=== PATIENT | female | born 1955 | race Caucasian/White ===

== ENCOUNTER 2024-12-27 12:25 | Inpatient (IN) | payer OTHER ==
--- NOTE | 2024-12-27 12:59 | RAD REPORT ---
Procedure: Chest Pa And Lat (2 Views) HISTORY: Cough COMPARISON: none FINDINGS: The lungs appear clear of acute infiltrate. No significant pleural effusion noted. The heart is normal size. IMPRESSION: No acute abnormality is displayed.
[2024-12-27] MEDS ORDERED: NA CHLORIDE 0.9% 1,000 ML ONE ×2 (14:08→23:03)
[2024-12-27 14:14] LABS: Influenza A Ag Negative; Influenza B Ag Negative; SARS-CoV-2 Antigen Rapid Res Negative (Negative)
[2024-12-27 14:29] LABS: Absolute Lymphocytes (CBC) 0.7 K/uL (0.7-4.9); Absolute Monocytes 2.7 K/uL (0.1-1.3); Absolute Neutrophil 15.2 K/uL (1.8-8.0); Basophils % 0.1 % (0-1.3); Hematocrit 42.9 % (36.0-45.0); Hemoglobin 14.8 g/dL (12.0-15.0); Lymphocytes % 3.9 % (15.3-44.8); MCHC 34.6 g/dL (32.0-36.0); MCV 92.5 fL (80-100); Monocytes % 14.3 % (3.3-12.3); Neutrophils % 81.7 % (41.7-73.7); Nucleated Red Blood Cells % 0.1 % (0-0); Platelets 444 thou/uL (152-406); RBC Red Blood Cell Count 4.64 M/uL (3.86-4.86); Red Cell Distribution Width 14.3 % (12.1-15.2)
[2024-12-27 14:37] LABS: Albumin 3.5 g/dL (3.4-5.0); Albumin/Globulin Ratio 0.6 (1.1-1.8); Anion Gap 14.1 mEq/L (5.0-15.0); Bilirubin Total 0.7 mg/dL (0.2-1.0); Globulin 5.8 g/dL (2.3-3.5); Protein, Total 9.3 g/dL (6.4-8.2)
[2024-12-27 14:41] LABS: Potassium 2.1 mEq/L (3.5-5.1)
[2024-12-27 15:19] LABS: Blood Morphology Comment NOT SEEN (NOT SEEN); Platelet Estimate INCR; White Blood Cell Scan OK (OK)
--- NOTE | 2024-12-27 16:06 | RAD REPORT ---
EXAM: CT CHEST, ABDOMEN AND PELVIS WITHOUT CONTRAST CLINICAL INDICATION: Cough and abdominal pain TECHNIQUE: CT chest, abdomen and pelvis was performed, without IV contrast, as per department protoco l. Axial, sagittal and coronal reconstructions were obtained. One or more of the following dose reduction techniques were used: Automated exposure control, adjustment of the mA and/or kV according to the patient size, and/or iterative reconstruction. Unless otherwise specified, incidental findings do not require dedicated imaging follow-up. The lack of IV and oral contrast limits evaluation of the mediastinum, osvaldo, vessels, organs and rocio l. COMPARISON: 2023 FINDINGS: Right lower lobe consolidation. Minimal left lower lobe opacities. No mediastinal or hilar lymphadenopathy seen. No pleural effusion. No pericardial effusion. Liver, spleen, pancreas, adrenals kidneys and bladder appear grossly normal There is no evidence of diverticulitis No adnexal mass. Left hip arthroplasty. Small umbilical hernia IMPRESSION: Right lower lobe consolidation consistent with pneumonia. This should be followed until has cleared t o help exclude a postobstructive process/underlying mass
[2024-12-27] MEDS ORDERED: IPRATROPIUM BROM 0.5MG/2.5ML ONE ×2 (16:08→19:19)
[2024-12-27] MEDS ORDERED: POTASSIUM 25 MEQ EFFERV TAB ONE ×2 (16:08→17:39)
[2024-12-27] MEDS ORDERED: FAMOTIDINE 20 MG/2 ML VIAL IV ONE (16:08)
[2024-12-27] MEDS ORDERED: NS KCL 20MEQ 1,000 ML IV ONE (16:08)
[2024-12-27] MEDS ORDERED: LEVALBUTEROL 1.25 MG/3 ML NEB ONE ×2 (16:08→16:47)
[2024-12-27] MEDS ORDERED: KCL 20 MEQ/100 mL IVPB 100 ML IV ONE ×3 (16:09→23:02)
[2024-12-27] MEDS ORDERED: Levofloxacin 750mg IV 750 MG/150 ML BAG IV ONE (16:09)
[2024-12-27 16:19] LABS: PT Prothrombin Time 13.8 SECONDS (10-13.0); Protime INR 1.22
--- NOTE | 2024-12-27 16:31 | EDPHYS ---
Physician Documentation [facility] Name: Eileen Palacio Age: 69 yrs Sex: Female : 1955 Arrival Date: 12/27/2024 Time: 12:25 Bed 23 Private MD: ED Physician Berlin Lagunas HPI: 12/27 16:21 This 69 yrs old Female presents to ER via Wheelchair with complaints of ladan Cough, Sore Throat, Body aches. 16:21 The patient or guardian reports airway noise, cough, difficulty breathing, flu ladan symptoms, arthralgias, low-grade fever, myalgias. Onset: The symptoms/episode began/occurred 5 day(s) ago. Severity of symptoms: At their worst the symptoms were mild, moderate, in the emergency department the symptoms are unchanged. Modifying factors: The symptoms are alleviated by cool environment, the symptoms are aggravated by exertion, talking. Associated signs and symptoms: Pertinent positives: fever, nausea, rhinorrhea, sore throat, vomiting. The patient has experienced similar episodes in the past, a few times. Historical: - Allergies: 13:26 No Known Allergies; iw - PMHx: 13:26 Arthritis; chronic back pain; High Cholesterol; Hypertension; neck stenosis; iw - PSHx: 13:26 Leg - Left; iw - Immunization history:: Adult Immunizations unknown. - Infectious Disease History:: Denies. - Social history:: Smoking status: Patient denies any tobacco usage or history of. ROS: 16:21 Constitutional: Negative for fever, chills, and weight loss, Eyes: Negative for injury, ladan pain, redness, and discharge, ENT: Negative for injury, pain, and discharge, Neck: Negative for injury, pain, and swelling, Cardiovascular: Negative for chest pain, palpitations, and edema, Respiratory: Negative for shortness of breath, cough, wheezing, and pleuritic chest pain, Back: Negative for injury and pain, : Negative for injury, bleeding, discharge, and swelling, MS/Extremity: Negative for injury and deformity, Skin: Negative for injury, rash, and discoloration, Neuro: Negative for headache, weakness, numbness, tingling, and seizure, Psych: Negative for depression, anxiety, suicide ideation, homicidal ideation, and hallucinations, Allergy/Immunology: Negative for hives, rash, and allergies, Endocrine: Negative for neck swelling, polydipsia, polyuria, polyphagia, and marked weight changes, Hematologic/Lymphatic: Negative for swollen nodes, abnormal bleeding, and unusual bruising, 16:21 Respiratory: Positive for cough, shortness of breath, wheezing, expiratory, 16:21 Abdomen/GI: Exam: 16:21 Constitutional: This is a well developed, well nourished patient who is awake, alert, ladan and in no acute distress. Head/Face: Normocephalic, atraumatic. Eyes: Pupils equal round and reactive to light, extra-ocular motions intact. Lids and lashes normal. Conjunctiva and sclera are non-icteric and not injected. Cornea within normal limits. Periorbital areas with no swelling, redness, or edema. ENT: Nares patent. No nasal discharge, no septal abnormalities noted. Tympanic membranes are normal and external auditory canals are clear. Oropharynx with no redness, swelling, or masses, exudates, or evidence of obstruction, uvula midline. Mucous membranes moist. Neck: Trachea midline, no thyromegaly or masses palpated, and no cervical lymphadenopathy. Supple, full range of motion without nuchal rigidity, or vertebral point tenderness. No Meningismus. Chest/axilla: Normal chest wall appearance and motion. Nontender with no deformity. No lesions are appreciated. Abdomen/GI: Soft, non-tender, with normal bowel sounds. No distension or tympany. No guarding or rebound. No evidence of tenderness throughout. Back: No spinal tenderness. No costovertebral tenderness. Full range of motion. Female : Normal external genitalia. Skin: Warm, dry with normal turgor. Normal color with no rashes, no lesions, and no evidence of cellulitis. MS/ Extremity: Pulses equal, no cyanosis. Neurovascular intact. Full, normal range of motion., bilateral aka Neuro: Awake and alert, GCS 15, oriented to person, place, time, and situation. Cranial nerves II-XII grossly intact. Motor strength 5/5 in all extremities. Sensory grossly intact. Cerebellar exam normal. Normal gait. Psych: Awake, alert, with orientation to person, place and time. Behavior, mood, and affect are within normal limits. 16:21 Cardiovascular: Rate: normal, Rhythm: regular, Pulses: Pulses are 4+ in bilateral radial, brachial, femoral, popliteal, posterior tibial and and dorsalis pedis arteries.. Heart sounds: normal, Edema: is not appreciated, JVD: is not appreciated, 16:21 ECG was reviewed by the Attending Physician. 16:21 Respiratory: the patient does not display signs of respiratory distress, Respirations: no acute changes, Breath sounds: bronchial sounds, that are moderate, are scattered, decreased breath sounds, that are mild, are scattered, rhonchi, that are moderate, are scattered, stridor, is not appreciated, + upper airway congestion. wheezing: expiratory is scattered, 16:21 Musculoskeletal/extremity: Extremities: all appear grossly normal, with no appreciated pain with palpation, ROM: no acute changes, intact in all extremities, full active range of motion, full passive range of motion, Sensation intact. Compartment Syndrome exam of affected extremity: is normal. Weight bearing: able to fully bear weight, DVT Exam: No signs of deep vein thrombosis. no pain, no swelling, no tenderness, negative Homans' sign noted on exam, no appreciated bluish discoloration, no erythema, no increased warmth, 16:31 ECG was reviewed by the Attending Physician. [facility] Vital Signs: 13:23 BP 129 / 81; Pulse 91; Resp 19; Temp 98.1; Pulse Ox 87% on R/A; iw 13:27 Weight 95.25 kg; Height 5 ft. 9 in. ; Pain 8/10; iw 15:10 BP 149 / 79; Pulse 86; Resp 18; Pulse Ox 95% on 2 lpm NC; me1 16:00 BP 136 / 63; Pulse 84; Resp 20; Pulse Ox 95% on 2 lpm NC; me1 17:00 BP 121 / 71; Pulse 86; Resp 22; Pulse Ox 97% on 2 lpm NC; me1 18:00 BP 120 / 63; Pulse 89; Resp 21; Pulse Ox 94% on 3 lpm NC; me1 13:27 Body Mass Index 31.01 (95.25 kg, 175.26 cm) 13:27 Pain Scale: Adult iw Luke Coma Score: 16:21 Eye Response: spontaneous(4). Motor Response: obeys commands(6). Verbal Response: ladan oriented(5). Total: 15. MDM: 12:34 Medical Screening Exam initiated [facility] 16:25 Differential Diagnosis: sepsis, Obstructed Airway Bronchitis Influenza Upper ladan Respiratory Infection Sinusitis Pharyngitis Asthma Exacerbation Viral Syndrome Pneumonia Tracheal Injury. Data reviewed: vital signs, nurses notes, EMS record, lab test result(s), EKG, radiologic studies, CT scan, plain films. Consideration of Admission/Observation Patient was admitted/placed on observation. Escalation of care including admission/observation considered. I considered the following discharge prescriptions or medication management in the emergency department Medications were administered in the Emergency Department. See MAR. Independent interpretation of the following test(s) in the Emergency Department EKG: See my EKG interpretation above. Test considered but Not performed: MRI: no mri chest. Historians other than the Patient: Spouse/Significant Other: spouse well in formed. Care significantly affected by the following chronic conditions: Hypertension, oa, chronic back pain, neck stenosis. Counseling: I had a detailed discussion with the patient and/or guardian regarding the historical points, exam findings, and any diagnostic results supporting the discharge/admit diagnosis, lab results, radiology results, the need for further work-up and treatment in the hospital. 12/27 12:36 Order name: COVID-19 Ag + Flu A+B Ag; Complete Time: 15:20 [facility] 12/27 12:36 Order name: Group A Streptococcus Rapid [facility] 12/27 12:36 Order name: CBC with Diff; Complete Time: 15:20 [facility] 12/27 12:36 Order name: Comprehensive Metabolic Panel; Complete Time: 15:20 [facility] 12/27 12:36 Order name: Urinalysis w/ reflexes [facility] 12/27 15:19 Order name: CBC Smear Scan; Complete Time: 15:20 [facility] 12/27 15:22 Order name: Basic Metabolic Panel [facility] 12/27 15:22 Order name: Magnesium [facility] 12/27 15:22 Order name: NT PRO-BNP [facility] 12/27 15:22 Order name: PT-INR; Complete Time: 16:24 [facility] 12/27 15:22 Order name: Troponin HS [facility] 12/27 15:22 Order name: Blood Culture Adult (2) [facility] 12/27 15:22 Order name: Lactate w/ 2H reflex if indic. [facility] 12/27 15:24 Order name: Phosphorus [facility] 12/27 16:58 Order name: Urinalysis w/ reflexes [facility] 12/27 16:58 Order name: Basic Metabolic Panel [facility] 12/27 16:58 Order name: Basic Metabolic Panel [facility] 12/27 16:58 Order name: Basic Metabolic Panel [facility] 12/27 16:58 Order name: Basic Metabolic Panel [facility] 12/27 16:58 Order name: Basic Metabolic Panel [facility] 12/27 16:58 Order name: Basic Metabolic Panel [facility] 12/27 16:58 Order name: Basic Metabolic Panel [facility] 12/27 16:58 Order name: Basic Metabolic Panel [facility] 12/27 16:58 Order name: CBC with Automated Diff [facility] 12/27 16:58 Order name: CBC with Automated Diff [facility] 12/27 16:58 Order name: CBC with Automated Diff [facility] 12/27 16:58 Order name: CBC with Automated Diff [facility] 12/27 16:58 Order name: CBC with Automated Diff [facility] 12/27 16:58 Order name: CBC with Automated Diff [facility] 12/27 16:58 Order name: CBC with Automated Diff [facility] 12/27 16:58 Order name: CBC with Automated Diff [facility] 12/27 16:58 Order name: Magnesium [facility] 12/27 16:58 Order name: Magnesium [facility] 12/27 16:58 Order name: Magnesium [facility] 12/27 16:58 Order name: Magnesium [facility] 12/27 16:58 Order name: Magnesium [facility] 12/27 16:58 Order name: Magnesium [facility] 12/27 16:58 Order name: Magnesium EDMS 12/27 16:58 Order name: Magnesium EDMS 12/27 16:58 Order name: Phosphorus EDMS 12/27 16:58 Order name: Phosphorus EDMS 12/27 16:58 Order name: Phosphorus EDMS 12/27 16:58 Order name: Phosphorus EDMS 12/27 16:58 Order name: Phosphorus EDMS 12/27 16:58 Order name: Phosphorus EDMS 12/27 16:58 Order name: Phosphorus [facility] 12/27 16:58 Order name: Phosphorus [facility] 12/27 16:58 Order name: Troponin High Sensitivity [facility] 12/27 16:58 Order name: Troponin High Sensitivity [facility] 12/27 16:59 Order name: Basic Metabolic Panel [facility] 12/28 07:56 Order name: Basic Metabolic Panel [facility] 12/27 12:36 Order name: Chest Pa And Lat (2 Views) XRAY; Complete Time: 15:20 ladan 12/27 15:23 Order name: CT Chest Abdomen Pelvis W/O Contrast; Complete Time: 16:15 ladan 12/27 15:22 Order name: Cardiac monitoring; Complete Time: 17:12/27 15:22 Order name: EKG - Nurse/Tech; Complete Time: 17:12/27 15:22 Order name: IV Saline Lock; Complete Time: 15:34 12/27 15:22 Order name: Labs collected and sent; Complete Time: 15:34 12/27 15:22 Order name: O2 Per Protocol; Complete Time: 15:12/27 15:22 Order name: O2 Sat Monitoring; Complete Time: 15: ladan 12/27 15:24 Order name: IV Saline Lock - Large Bore; Complete Time: 15:12/27 15:29 Order name: IV Saline Lock - Large Bore; Complete Time: 15:38 [facility] EC:31 Rate is 83 beats/min. Rhythm is regular. QRS Davilla is Normal. [place] interval is normal. QRS ladan interval is normal. QT interval is normal. No Q waves. T waves are Normal. No ST changes noted. Clinical impression: NSR w/ Non-specific ST/T Changes and No evidence of ischemia. Interpreted by me. Reviewed by me. Administered Medications: 14:16 Drug: NS 0.9% IV 1000 ml IV at 1000 ml once; to be given as a bolus over 60 minutes iw Route: IV; Rate: 1000 ml; Site: left antecubital; 15:24 Follow up: Response: No adverse reaction; IV Status: Completed infusion; IV Intake: me1 1000ml 16:29 Drug: levofloxacin IVPB 750 mg 150 ml IVPB once over 90 mins Volume: 150 ml; Route: me1 IVPB; Infused Over: 90 mins; Site: left antecubital; 17:42 Follow up: Response: No adverse reaction; IV Status: Completed infusion; IV Intake: me1 150ml 16:29 Drug: Levalbuterol Inhalation 2.5 mg Inhalation once Route: Inhalation; me1 17:43 Follow up: Response: No adverse reaction; Wheezing diminished me1 16:29 Drug: Ipratropium Inhalation Aerosol 0.5 mg Inhalation once Route: Inhalation; me1 17:43 Follow up: Response: No adverse reaction; Wheezing diminished me1 16:29 Drug: Famotidine IVP 20 mg IVP once; dilute with 10 mL 0.9% NaCl; give over 2 minutes me1 Route: IVP; Site: left antecubital; 17:43 Follow up: Response: No adverse reaction me1 16:29 Drug: NS 0.9% with KCl IV 20 mEq/L 1000 ml IV at 125 ml/hr continuous Route: IV; Rate: me1 125 ml/hr; Site: left antecubital; 23:05 Follow up: IV Status: Infusion continued upon admission me1 16:30 Drug: Potassium PO Effervescent Tablet 50 mEq PO once; dissolve in 4 ounces of water or me1 juice Route: PO; 17:44 Follow up: Response: No adverse reaction me1 17:42 Drug: Potassium PO Effervescent Tablet 50 mEq PO once; dissolve in 4 ounces of water or me1 juice Route: PO; 20:38 Follow up: Response: No adverse reaction me1 17:44 Drug: Piperacillin-Tazobactam IVPB 3.375 grams IVPB once over 60 mins; (mix in NS 100 me1 mL) Route: IVPB; Infused Over: 60 mins; Site: left antecubital; 18:14 Follow up: Response: No adverse reaction; IV Status: Completed infusion me1 17:44 Drug: Levalbuterol Inhalation 1.25 mg Inhalation once Route: Inhalation; me1 17:56 Drug: Potassium Chloride IV 20 mEq IV at per protocol once; administer over 1-2 hours me1 Route: IV; Rate: per protocol; Site: left antecubital; 20:37 Follow up: Response: No adverse reaction; IV Status: Completed infusion me1 20:37 Drug: Potassium Chloride IV 20 mEq IV at per protocol once; administer over 1-2 hours me1 Route: IV; Rate: per protocol; Site: left antecubital; 23:05 Follow up: IV Status: Completed infusion me1 Disposition Summary: 12/27/24 16:31 Hospitalization Ordered Notes: Hospitalization Status: Inpatient Admission ladan Provider: Parker Disla cha Condition: Fair ladan Problem: new ladan Symptoms: have improved ladan Bed/Room Type: Standard ladan Location: Telemetry/MedSurg (Inpatient)(12/28/24 10:48) bc6 Room Assignment: [facility](12/28/24 10:48) bc6 Diagnosis - Hypo-osmolality and hyponatremia ladan - Hypokalemia ladan - Elevated white blood cell count ladan - Anorexia ladan - Chronic kidney disease, unspecified ladan - Pneumonia due to other specified bacteria - right lower lobe consolisation ladan - Hypercalcemia ladan Forms: - Medication Reconciliation Form ladan - SBAR form ladan - Leadership Thank You Letter ladan Signatures: Dispatcher [employer] Ghada Aquino Corey, MD MD cha Williams, Irene, RN RN iw Layne Gonzalez RN RN Fidelina Yañez [facility] Fatou Griffin RN RN me1 Corrections: (The following items were deleted from the chart) 17:47 16:31 Telemetry/MedSurg (Inpatient) [facility] 17:47 16:31 ladan 12/28 10:48 12/27 17:47 [facility] ER HOLD [facility] 12/28 10:48 12/27 17:47 [facility]- [facility]
--- NOTE | 2024-12-27 16:31 | ER ---
Nurse's Notes [facility] Name: Eileen Palacio Age: 69 yrs Sex: Female : 1955 Arrival Date: 12/27/2024 Time: 12:25 Bed 23 Private MD: Diagnosis: Hypo-osmolality and hyponatremia;Hypokalemia;Elevated white blood cell count;Anorexia;Chronic kidney disease, unspecified;Pneumonia due to other specified bacteria-right lower lobe consolisation;Hypercalcemia Presentation: 12/27 13:23 Chief complaint: Patient states: confused , feels dehydrated, not eating or drinking as iw she normally, having hallucinations , vomited once on the past 3 days and having some diarrhea , + cough and congestion , mild burning with urination and incontinence, everything started 10 days ago. Coronavirus screen: Client presents with at least one sign or symptom that may indicate coronavirus-19. Ebola Screen: No symptoms or risks identified at this time. Initial Sepsis Screen: Does the patient meet any 2 criteria? No. Patient's initial sepsis screen is negative. Does the patient have a suspected source of infection? No. Patient's initial sepsis screen is negative. Risk Assessment: Do you want to hurt yourself or someone else? Patient reports no desire to harm self or others. Onset of symptoms was December 17, 2024. 13:23 Method Of Arrival: Wheelchair iw 13:23 Acuity: JOSE LUIS 3 iw 14:00 Acuity: JOSE LUIS 2 iw Historical: - Allergies: 13:26 No Known Allergies; iw - PMHx: 13:26 Arthritis; chronic back pain; High Cholesterol; Hypertension; neck stenosis; iw - PSHx: 13:26 Leg - Left; iw - Immunization history:: Adult Immunizations unknown. - Infectious Disease History:: Denies. - Social history:: Smoking status: Patient denies any tobacco usage or history of. Screenin:16 [facility] ED Fall Risk Assessment (Adult) History of falling in the last 3 months, iw including since admission No falls in past 3 months (0 pts) Confusion or Disorientation No (0 pts) Intoxicated or Sedated No (0 pts) Impaired Gait No (0 pts) Mobility Assist Device Used No (0 pt) Altered Elimination No (0 pt) Score/Fall Risk Level 0 - 2 = Low Risk Oriented to surroundings, Maintained a safe environment. Abuse screen: Denies threats or abuse. Nutritional screening: No deficits noted. Tuberculosis screening: No symptoms or risk factors identified. Assessment: 14:16 Reassessment: Patient appears in no apparent distress at this time. Patient and/or iw family updated on plan of care and expected duration. Pain level reassessed. Patient is alert, oriented x 3, equal unlabored respirations, skin warm/dry/pink. pt moved to chair area, labs drawn and sent. 12/28 07:15 Reassessment: SEE [employer] for [employer] FOR DOCUMENTATION. db Vital Signs: 12/27 13:23 BP 129 / 81; Pulse 91; Resp 19; Temp 98.1; Pulse Ox 87% on R/A; iw 13:27 Weight 95.25 kg; Height 5 ft. 9 in. ; Pain 8/10; iw 15:10 BP 149 / 79; Pulse 86; Resp 18; Pulse Ox 95% on 2 lpm NC; me1 16:00 BP 136 / 63; Pulse 84; Resp 20; Pulse Ox 95% on 2 lpm NC; me1 17:00 BP 121 / 71; Pulse 86; Resp 22; Pulse Ox 97% on 2 lpm NC; me1 18:00 BP 120 / 63; Pulse 89; Resp 21; Pulse Ox 94% on 3 lpm NC; me1 13:27 Body Mass Index 31.01 (95.25 kg, 175.26 cm) iw 13:27 Pain Scale: Adult iw Luke Coma Score: 16:21 Eye Response: spontaneous(4). Motor Response: obeys commands(6). Verbal Response: ladan oriented(5). Total: 15. ED Course: 12:29 Patient arrived in ED. mr 12:34 Berlin Lagunas MD is Attending Physician. ladan 12:49 Chest Pa And Lat (2 Views) XRAY In Process Unspecified. EDMS 13:26 Triage completed. iw 14:15 Roxanne Garrido, RN is Primary Nurse. iw 14:16 Initial lab(s) drawn, by me, sent to lab. Inserted saline lock: 22 gauge in left iw antecubital area, using aseptic technique. Blood collected. Flushed with 10 mL NS. 14:17 Patient has correct armband on for positive identification. Provided Education on: lab iw wait time . 15:05 Patient placed in an exam room, on a stretcher. ll1 15:41 CT Chest Abdomen Pelvis W/O Contrast In Process Unspecified. EDMS 15:59 First set of blood cultures drawn by me. me1 16:04 Blood Culture Adult (2) Sent. me1 16:04 Lactate w/ 2H reflex if indic. Sent. me1 16:04 Phosphorus Sent. me1 16:10 Second set of blood cultures drawn by me. me1 16:29 Parker Disla PA is Hospitalizing Provider. ladan 17:50 Missed attempt(s): 22 gauge in left hand. Bleeding controlled, band aid applied, ll1 catheter tip intact. 17:53 Inserted saline lock: 24 gauge in left wrist, using aseptic technique. Flushed with 10 ll1 mL NS. 12/28 11:56 No provider procedures requiring assistance completed. Patient admitted, IV remains in db place. Administered Medications: 12/27 14:16 Drug: NS 0.9% IV 1000 ml IV at 1000 ml once; to be given as a bolus over 60 minutes iw Route: IV; Rate: 1000 ml; Site: left antecubital; 15:24 Follow up: Response: No adverse reaction; IV Status: Completed infusion; IV Intake: me1 1000ml 16:29 Drug: levofloxacin IVPB 750 mg 150 ml IVPB once over 90 mins Volume: 150 ml; Route: me1 IVPB; Infused Over: 90 mins; Site: left antecubital; 17:42 Follow up: Response: No adverse reaction; IV Status: Completed infusion; IV Intake: me1 150ml 16:29 Drug: Levalbuterol Inhalation 2.5 mg Inhalation once Route: Inhalation; me1 17:43 Follow up: Response: No adverse reaction; Wheezing diminished me1 16:29 Drug: Ipratropium Inhalation Aerosol 0.5 mg Inhalation once Route: Inhalation; me1 17:43 Follow up: Response: No adverse reaction; Wheezing diminished me1 16:29 Drug: Famotidine IVP 20 mg IVP once; dilute with 10 mL 0.9% NaCl; give over 2 minutes me1 Route: IVP; Site: left antecubital; 17:43 Follow up: Response: No adverse reaction me1 16:29 Drug: NS 0.9% with KCl IV 20 mEq/L 1000 ml IV at 125 ml/hr continuous Route: IV; Rate: me1 125 ml/hr; Site: left antecubital; 23:05 Follow up: IV Status: Infusion continued upon admission me1 16:30 Drug: Potassium PO Effervescent Tablet 50 mEq PO once; dissolve in 4 ounces of water or me1 juice Route: PO; 17:44 Follow up: Response: No adverse reaction me1 17:42 Drug: Potassium PO Effervescent Tablet 50 mEq PO once; dissolve in 4 ounces of water or me1 juice Route: PO; 20:38 Follow up: Response: No adverse reaction me1 17:44 Drug: Piperacillin-Tazobactam IVPB 3.375 grams IVPB once over 60 mins; (mix in NS 100 me1 mL) Route: IVPB; Infused Over: 60 mins; Site: left antecubital; 18:14 Follow up: Response: No adverse reaction; IV Status: Completed infusion me1 17:44 Drug: Levalbuterol Inhalation 1.25 mg Inhalation once Route: Inhalation; me1 17:56 Drug: Potassium Chloride IV 20 mEq IV at per protocol once; administer over 1-2 hours me1 Route: IV; Rate: per protocol; Site: left antecubital; 20:37 Follow up: Response: No adverse reaction; IV Status: Completed infusion me1 20:37 Drug: Potassium Chloride IV 20 mEq IV at per protocol once; administer over 1-2 hours me1 Route: IV; Rate: per protocol; Site: left antecubital; 23:05 Follow up: IV Status: Completed infusion me1 Medication: 12/28 11:56 VIS not applicable for this client. db Intake: 12/27 15:24 IV: 1000ml; Total: 1000ml. me1 17:42 IV: 150ml; Total: 1150ml. ri1 Outcome: 16:31 Decision to Hospitalize by Provider. [facility] 12/28 11:56 Admitted to Med/surg accompanied by tech, room 206, Report called to FAXED db Condition: stable Instructed on the need for admit, 11:57 Patient left the ED. db Signatures: Dispatcher [employer] Berlin Wong MD MD cha Rivera, Mary, [facility] mr Roxanne Garrido RN RN iw Abril Brar RN RN 1 Layne Gonzalez RN RN db Fatou Griffin RN RN ri1
[2024-12-27 16:33] LABS: Anion Gap 12.1 mEq/L (5.0-15.0); Magnesium 2.5 mg/dL (1.6-2.4); Phosphorus 2.5 mg/dL (2.5-4.9); Troponin High Sensitivity 8.6 pg/mL (<58.9)
[2024-12-27 16:34] LABS: Potassium 2.1 mEq/L (3.5-5.1)
[2024-12-27] MEDS: HEPARIN 5000 UNIT/ML 1 ML VIAL SQ SCH (17:00)
[2024-12-27] MEDS ORDERED: NS KCL 20MEQ 20 MEQ/1,000 ML BAG IV SCH (17:00)
[2024-12-27] MEDS ORDERED: NA CHLORIDE 0.9% 100 ML ONE ×2 (17:42→23:02)
[2024-12-27] MEDS ORDERED: PIPERACIL/TAZO 3.375 GM VIAL IV ONE (17:42)
--- NOTE | 2024-12-27 18:42 | P.HP ---
Certification for Inpatient Patient admitted to: Inpatient With expected LOS: >2 Midnights Practitioner: I am a practitioner with admitting privileges, knowledge of patient current condition, hospital course, and medical plan of care. Services: Services provided to patient in accordance with Admission requirements found in Title 42 Section 412.3 of the Code of Federal Regulations Patient History Date of Service: 12/28/24 Reason for admission: sepsis due to PNA History of Present Illness: Patient is a 69-year-old female brought into the ER with chief co mplaint of cough, sore throat and bodyaches. Patient has been having difficulty breathing as well, arthralgia and low-grade fever. She has been found to have right lower lobe pneumonia. Patient meets criteria for sepsis. Her WBC is 18,000. Additional workup revealed a potassium of 2.1. This was repleted in the ER. Patient is being admitted for sepsis and electrolyte abnormalities. Allergies No Known Allergies Allergy (Unverified 12/27/24 21:13) Physical Examination - Physical Exam General: Moderate distress HEENT: Atraumatic, Normocephalic Respiratory: Diminished Cardiovascular: No edema, Normal pulses, Regular rate/rhythm, Normal S1 S2 Neurological: Normal speech - Studies Laboratory Data (last 24 hrs) 12/27/24 12/27/24 12/27/24 15:59 15:59 14:12 WBC Hgb Hct Plt Count PT 13.8 H INR 1.22 Sodium 129 L 127 L Potassium 2.1 L* 2.1 L* BUN 27 H 27 H Creatinine 1.34 H 1.47 H Glucose 150 H 166 H Phosphorus 2.5 Magnesium 2.5 H Total Bilirubin 0.7 AST 85 H ALT 71 H Alkaline Phosphatase 161 H 12/27/24 14:12 WBC 18.60 H Hgb 14.8 Hct 42.9 Plt Count 444 H PT INR Sodium Potassium BUN Creatinine Glucose Phosphorus Magnesium Total Bilirubin AST ALT Alkaline Phosphatase Assessment and Plan - Problems (Diagnosis) (1) Sepsis Current Visit: Yes Status: Acute (2) Community acquired bacterial pneumonia Current Visit: Yes Status: Acute (3) HTN (hypertension) Current Visit: Yes Status: Acute (4) Hypokalemia Current Visit: Yes Status: Acute (5) Hyponatremia Current Visit: Yes Status: Acute (6) Hyperlipidemia Current Visit: Yes Status: Acute - Plan Assessment 69-year-old female who is being admitted for sepsis after she presented with flulike symptoms. Patient received ceftriaxone and azithromycin in the ER. Her symptoms have been ongoing for the past 5 days. She tested negative for influenza and COVID. She is hemodynamically stable. Sepsis Community-acquired pneumonia Hypokalemia Hyponatremia ALICIA Hypertension Hyperlipidemia Plan: Will admit inpatient with telemetry Continue patient on empiric antibiotic coverage which will include ceftriaxone and azithromycin Respiratory culture sent Supplemental oxygen as needed Consult pulmonary medicine GI prophylaxis Resume rest of home medication upon reconciliation Of note, patient was to be DNI. She also does not want to be vaccinated. Had conversation with the patient and at bedside. - Advance Directives Does patient have a Living Will: No Does patient have a Durable POA for Healthcare: No
[2024-12-27] MEDS ORDERED: ALBUTEROL 2.5 MG/3 ML NEB SOL ONE (19:19)
[2024-12-27] MEDS: ALBUTEROL 2.5 MG/3 ML NEB SOL NEB SCH (19:20)
[2024-12-27] MEDS: IPRATROPIUM BROM 0.5MG/2.5ML NEB SCH (19:20)
[2024-12-27 20:58] LABS: Anion Gap 12.4 mEq/L (5.0-15.0)
[2024-12-27 21:00] LABS: Potassium 2.4 mEq/L (3.5-5.1)
[2024-12-27] MEDS: POTASSIUM 25 MEQ EFFERV TAB PO ONE (21:26)
[2024-12-27] MEDS ORDERED: POTASSIUM CL 40 MEQ in NA CHLORIDE 0.9% 500 ML IV SCH (22:00)
[2024-12-27] MEDS: NA CHLORIDE 0.9% 1,000 ML IV SCH (22:00)
[2024-12-27] MEDS: DOXYCYCLINE 100 MG in NA CHLORIDE 0.9% 100 ML IVPB SCH (22:55)
[2024-12-27] MEDS: KCL 20 MEQ/100 mL IVPB 100 ML IV SCH (22:55)
[2024-12-27] MEDS ORDERED: DOXYCYCLINE HYCLATE 100MG INJ ONE (23:02)
[2024-12-27 23:24] VITALS: BMI 31.0
[2024-12-28] MEDS ORDERED: IPRATROPIUM BROM 0.5MG/2.5ML ONE ×2 (00:38→07:47)
[2024-12-28] MEDS ORDERED: ALBUTEROL 2.5 MG/3 ML NEB SOL ONE ×2 (00:38→07:47)
[2024-12-28] MEDS ORDERED: KCL 20 MEQ/100 mL IVPB 100 ML IV ONE ×3 (01:20→09:15)
[2024-12-28 02:52] LABS: Specific Gravity 1.023 (1.005-1.030); Urine Bacteria None Seen /HPF (<20); Urine Bilirubin NEGATIVE (Negative); Urine Blood 3+ (OVER) (Negative); Urine Clarity Extremely Turbid (Clear); Urine Color Yellow (Yellow); Urine Culture Reflex Order NOT NEEDED; Urine Glucose NEGATIVE (Negative); Urine Ketones NEGATIVE (Negative); Urine Microscopic Reflex YN ORDER UMIC; Urine Mucus Slight /HPF (None Seen); Urine Nitrite NEGATIVE (Negative); Urine Protein 2+ (Negative); Urine Urobilinogen Normal (Normal); Urine WBC <5 /HPF (<5)
[2024-12-28 05:55] LABS: Absolute Lymphocytes (CBC) 1.1 K/uL (0.7-4.9); Absolute Monocytes 3.1 K/uL (0.1-1.3); Absolute Neutrophil 14.9 K/uL (1.8-8.0); Basophils % 0.1 % (0-1.3); Hematocrit 36.5 % (36.0-45.0); Hemoglobin 12.6 g/dL (12.0-15.0); Lymphocytes % 5.6 % (15.3-44.8); MCH 31.9 pg (27.0-35.0); MCHC 34.6 g/dL (32.0-36.0); MCV 92.1 fL (80-100); MPV 7.9 fL (7.6-11.3); Monocytes % 16.4 % (3.3-12.3); Neutrophils % 77.9 % (41.7-73.7); Platelets 372 thou/uL (152-406); RBC Red Blood Cell Count 3.97 M/uL (3.86-4.86)
[2024-12-28 05:56] LABS: Anion Gap 9.8 mEq/L (5.0-15.0); Phosphorus 1.7 mg/dL (2.5-4.9); Potassium 2.8 mEq/L (3.5-5.1)
[2024-12-28] MEDS: POTASS/SODIUM PHOSPHATE 1 PKT POWD.PACK PO SCH (07:00)
[2024-12-28] MEDS: KCL 20 MEQ/100 mL IVPB 20 MEQ/100 ML BAG IV SCH (07:30)
[2024-12-28] MEDS ORDERED: POTASS/SODIUM PHOSPHATE 1 PKT POWD.PACK ONE ×3 (07:43→09:14)
[2024-12-28 07:56] LABS: Anion Gap 10.8 mEq/L (5.0-15.0); Potassium 2.8 mEq/L (3.5-5.1)
[2024-12-28] MEDS ORDERED: NA CHLORIDE 0.9% 1,000 ML ONE (08:27)
--- NOTE | 2024-12-28 08:36 | EKG ---
Test Date: 2024-12-27 Test Time: 16:24:30 Relief Pharmacist: MEASUREMENT RESULTS: Intervals: Rate: 83 GA: 184 QRSD: 122 QT: 384 QTc: 451 [place]: P: 62 GA: 184 QRS: 35 T: 10 INTERPRETIVE STATEMENTS: Normal sinus rhythm Nonspecific ST and T wave abnormality Abnormal ECG No previous ECG available for comparison Electronically Signed On 12-28-24 08:35:04 CDT by Speedy Land
[2024-12-28] MEDS: THIAMINE 200 MG/2 ML INJ IVP SCH (09:00)
[2024-12-28] MEDS ORDERED: THIAMINE 200 MG/2 ML INJ ONE (09:14)
[2024-12-28] MEDS ORDERED: AZITHROMYCIN 500 MG INJ IVPB ONE (09:14)
[2024-12-28] MEDS ORDERED: CEFTRIAXONE 1000 MG/VIAL ONE (09:14)
[2024-12-28] MEDS ORDERED: HEPARIN 5000 UNIT/ML 1 ML VIAL ONE (09:14)
[2024-12-28] MEDS ORDERED: NA CHLORIDE 0.9% 50 ML ONE (09:15)
[2024-12-28] MEDS ORDERED: NA CHLORIDE 0.9% 250 ML ONE (09:15)
[2024-12-28] MEDS: CEFTRIAXONE 1,000 MG in NA CHLORIDE 0.9% 50 ML IVPB SCH (09:30)
[2024-12-28] MEDS: AZITHROMYCIN IV 500 MG in NA CHLORIDE 0.9% 250 ML IVPB SCH (10:05)
--- NOTE | 2024-12-28 12:11 | P.CNS ---
Date of Consult: 12/28/24 Reason for Consult: Right lower lobe pneumonia Chief Complaint: sepsis due to PNA History of Present Illness: Patient is 69 years of age admitted with worsening cough congestion hallucinations for the past week some fever and chills no prior history of cardiopulmonary problems admitted with right lower lobe pneumonia elevated white count patient does not smoke no prior history of any cardiopulmonary problems was also found to be severely hypokalemic Allergies No Known Allergies Allergy (Unverified 12/27/24 21:13) - Past Medical/Surgical History -: Hypertension -: Chronic back pain - Social History Place of Residence: Home Review of Systems is unable to be obtained Physical Examination Temp Pulse Resp BP Pulse Ox 98.4 F 99 H 17 135/75 97 12/28/24 08:00 12/28/24 08:00 12/28/24 08:00 12/28/24 08:00 12/28/24 08:00 General: Alert, Delirious HEENT: Atraumatic Neck: Supple Respiratory: Crackles/rales (Crackles in the right lower lobe) Cardiovascular: No edema, Regular rate/rhythm, Normal S1 S2 Laboratory Data (last 24 hrs) 12/27/24 12/27/24 12/27/24 15:59 15:59 14:12 WBC Hgb Hct Plt Count PT 13.8 H INR 1.22 Sodium 129 L 127 L Potassium 2.1 L* 2.1 L* BUN 27 H 27 H Creatinine 1.34 H 1.47 H Glucose 150 H 166 H Phosphorus 2.5 Magnesium 2.5 H Total Bilirubin 0.7 AST 85 H ALT 71 H Alkaline Phosphatase 161 H 12/27/24 14:12 WBC 18.60 H Hgb 14.8 Hct 42.9 Plt Count 444 H PT INR Sodium Potassium BUN Creatinine Glucose Phosphorus Magnesium Total Bilirubin AST ALT Alkaline Phosphatase - Problems (1) Community acquired bacterial pneumonia Current Visit: Yes Status: Acute Plan: Patient is 69 years of age admitted with cough congestion shortness of breath altered mental status hallucinations delirium she does have a right lower lobe pneumonia more prominent on the CT scan most likely she has encephalopathy from infection continue with IV antibiotics for now DC doxycycline patient is on Rocephin and azithromycin add some thiamine labs reviewed white count is elevated I suspect her severe hypokalemia is from underlying diuretics that she may be on patient was also has some renal insufficiency which all seems to be improving
[2024-12-28] MEDS: POTASSIUM 25 MEQ EFFERV TAB PO SCH (13:14)
--- NOTE | 2024-12-28 14:23 | P.PN ---
Subjective Date of Service: 12/28/24 Chief Complaint: sepsis due to PNA Subjective: No chest pain. shortness of breath improving. No nausea or vomiting. No abdominal pain. No obvious bleeding. Looks comfortable in the bed. Objective: General appearance: Alert and comfortable CVS: Normal S1 and S2 Lungs: Clear to auscultation bilaterally Abdomen: Soft, bowel sounds present, no tenderness Extremities: No lower extremity edema Physical Examination - Vital Signs Temperature: 98.5 F Blood Pressure: 159/79 Pulse: 101 Respirations: 22 Pulse Ox (%): 93 - Studies Laboratory Data (last 24 hrs) 12/27/24 12/27/24 12/27/24 15:59 15:59 14:12 WBC Hgb Hct Plt Count PT 13.8 H INR 1.22 Sodium 129 L 127 L Potassium 2.1 L* 2.1 L* BUN 27 H 27 H Creatinine 1.34 H 1.47 H Glucose 150 H 166 H Phosphorus 2.5 Magnesium 2.5 H Total Bilirubin 0.7 AST 85 H ALT 71 H Alkaline Phosphatase 161 H 12/27/24 14:12 WBC 18.60 H Hgb 14.8 Hct 42.9 Plt Count 444 H PT INR Sodium Potassium BUN Creatinine Glucose Phosphorus Magnesium Total Bilirubin AST ALT Alkaline Phosphatase Assessment And Plan - Plan 69-year-old female who is being admitted for sepsis after she presented with flulike symptoms. Patient received ceftriaxone and azithromycin in the ER. 1. Sepsis with Community-acquired pneumonia: Continue antibiotics, follow-up on cultures. -will need f/u CT in few weeks to document resolution as per radiology 2. Hypokalemia, Hyponatremia, hypophosphatemia: Continue IV fluids and replace electrolytes. 3. ALICIA: IV Fluids and monitor closely. 4. Hypertension, Hyperlipidemia: home meds Plan Discussed the patient, answered all questions. Discussed With family at bedside.
[2024-12-28 15:23] LABS: Anion Gap 11.6 mEq/L (5.0-15.0); Potassium 3.6 mEq/L (3.5-5.1)
[2024-12-28] MEDS: AMLODIPINE 5 MG TAB PO SCH (16:08)
[2024-12-28] MEDS: MELATONIN 3 MG TABLET PO PRN (21:05)
[2024-12-29 04:50] LABS: Absolute Lymphocytes (CBC) 0.9 K/uL (0.7-4.9); Absolute Monocytes 2.6 K/uL (0.1-1.3); Absolute Neutrophil 17.5 K/uL (1.8-8.0); Basophils % 0.2 % (0-1.3); Eosinophils % 0.2 % (0-4.4); Hematocrit 34.5 % (36.0-45.0); Hemoglobin 11.7 g/dL (12.0-15.0); Lymphocytes % 4.3 % (15.3-44.8); MCH 31.7 pg (27.0-35.0); MCHC 33.8 g/dL (32.0-36.0); MCV 93.6 fL (80-100); MPV 7.5 fL (7.6-11.3); Monocytes % 12.2 % (3.3-12.3); Neutrophils % 83.1 % (41.7-73.7); Platelets 362 thou/uL (152-406); RBC Red Blood Cell Count 3.69 M/uL (3.86-4.86); Red Cell Distribution Width 14.7 % (12.1-15.2)
[2024-12-29 05:21] LABS: Albumin 2.4 g/dL (3.4-5.0); Albumin/Globulin Ratio 0.5 (1.1-1.8); Anion Gap 10.1 mEq/L (5.0-15.0); Bilirubin Direct 0.3 mg/dL (0-0.2); Bilirubin Indirect, Calculated 0.3 mg/dL (0.2-0.8); Bilirubin Total 0.6 mg/dL (0.2-1.0); Magnesium 2.1 mg/dL (1.6-2.4); Phosphorus 2.2 mg/dL (2.5-4.9); Potassium 3.1 mEq/L (3.5-5.1); Protein, Total 7.4 g/dL (6.4-8.2)
[2024-12-29] MEDS: POTASS/SODIUM PHOSPHATE 1 PKT POWD.PACK PO SCH (08:00)
[2024-12-29] MEDS: ENOXAPARIN 40 MG/0.4 ML SQ SCH (10:26)
[2024-12-29] MEDS: POTASSIUM PHOS IN 0.9 % NACL 15 MMOL/250 ML BAG IV ONE (10:27)
--- NOTE | 2024-12-29 11:00 | P.PN ---
Subjective Date of Service: 12/29/24 Chief Complaint: Patient continues to cough and is delirious No change has been present at the bedside continues to have a persistent cough delirious disoriented not been eating and drinking Review of Systems General: Weakness Respiratory: Cough, Shortness of Breath Physical Examination - Vital Signs Temperature: 98.5 F Blood Pressure: 137/85 Pulse: 101 Respirations: 18 Pulse Ox (%): 93 - Physical Exam General: Alert, Delirious Respiratory: Clear to auscultation bilaterally, Diminished Cardiovascular: No edema, Regular rate/rhythm Assessment And Plan - Current Problems (Diagnosis) (1) Community acquired bacterial pneumonia Current Visit: Yes Status: Acute Plan: Patient is 69 years of age admitted with right lower lobe pneumonia delirium not eating and drinking changed to IV left levofloxacin for better atypical coverage due to underlying encephalopathy of also ordered a CT scan of the head with out contrast white count is elevated not eating and drinking consider Dobbhoff tube
--- NOTE | 2024-12-29 12:39 | RAD REPORT ---
EXAM: CT Head Brain Wo Cont HISTORY: Encephalopathy COMPARISON: None TECHNIQUE: Multiple contiguous axial images were obtained for a CT of the brain without contrast. Sag ittal and coronal reformats were performed. One or more of the following dose reduction techniques were used: Automated exposure control, adjus tment of the mA and kV according to patient size, and iterative reconstruction. Unless otherwise specified, incidental findings do not require dedicated imaging follow-up. FINDINGS: No evidence of hydrocephalus, intracranial hemorrhage, or extra-axial fluid collection. Mild brain atrophy with mild periventricular and deep white matter chronic microvascular ischemic ch anges present. The calvarium is intact. Right sphenoid sinus opacification with air-fluid level. Mastoid air cells a re essentially clear. IMPRESSION: No evidence of acute intracranial abnormality. Right sphenoid sinus opacification with air-fluid level, correlate for signs/symptoms of acute sinusi tis.
[2024-12-29] MEDS: Levofloxacin 750mg IV 750 MG/150 ML BAG IV SCH (13:29)
[2024-12-29] MEDS: POTASSIUM 25 MEQ EFFERV TAB PO ONE (13:30)
--- NOTE | 2024-12-29 14:29 | P.PN ---
Subjective Date of Service: 12/29/24 Chief Complaint: Patient continues to cough and is delirious Subjective: No chest pain. shortness of breath improving. No nausea or vomiting. No abdominal pain. No obvious bleeding. Looks comfortable in the bed. hallucinations on and off as per . Objective: General appearance: Alert and comfortable CVS: Normal S1 and S2 Lungs: Clear to auscultation bilaterally Abdomen: Soft, bowel sounds present, no tenderness Extremities: No lower extremity edema Physical Examination - Vital Signs Temperature: 98.1 F Blood Pressure: 133/77 Pulse: 106 Respirations: 18 Pulse Ox (%): 96 Assessment And Plan - Plan 69-year-old female who is being admitted for sepsis after she presented with flulike symptoms. Patient received ceftriaxone and azithromycin in the ER. 1. Sepsis with Community-acquired pneumonia: Change antibiotics to rocephin and doxy, follow-up on cultures. -will need f/u CT in few weeks to document resolution as per radiology 1a. hallucinations: CT head neg. DC levofloxacin 2. Hypokalemia, Hyponatremia, hypophosphatemia: Continue IV fluids and replace electrolytes. monitor closely 3. ALICIA: IV Fluids and monitor closely. 4. Hypertension, Hyperlipidemia: home meds Plan Discussed the patient, answered all questions. Discussed With family at bedside. d/w nursing staff and CM team
[2024-12-29] MEDS: ACYCLOVIR 400 MG TABLET PO SCH (18:50)
[2024-12-29] MEDS: ZOLPIDEM TARTRATE 5 MG TABLET PO PRN (20:44)
[2024-12-29] MEDS: DOXYCYCLINE 100 MG CAP PO SCH (20:44)
[2024-12-30] MEDS: LORazepam 2 MG/ML VIAL IV ONE (00:03)
[2024-12-30] MEDS: HALOPERIDOL LACT 5 MG/ML INJ ONE (03:10)
[2024-12-30] MEDS: HALOPERIDOL LACT 5 MG/ML INJ IV ONE (03:19)
[2024-12-30] MEDS: ACETAMINOPHEN 325 MG TABLET PO PRN (03:37)
[2024-12-30] MEDS: CEFTRIAXONE 1,000 MG in NA CHLORIDE 0.9% 50 ML IVPB SCH (08:28)
[2024-12-30 10:50] LABS: Absolute Basophils 0.1 K/uL (0-0.5); Absolute Eosinophils 0.1 K/uL (0-0.5); Absolute Monocytes 2.3 K/uL (0.1-1.3); Absolute Neutrophil 17.5 K/uL (1.8-8.0); Basophils % 0.5 % (0-1.3); Eosinophils % 0.5 % (0-4.4); Hematocrit 38.2 % (36.0-45.0); Hemoglobin 12.6 g/dL (12.0-15.0); Lymphocytes % 4.6 % (15.3-44.8); MCH 31.2 pg (27.0-35.0); MCHC 32.9 g/dL (32.0-36.0); MCV 94.9 fL (80-100); MPV 7.5 fL (7.6-11.3); Monocytes % 10.9 % (3.3-12.3); Neutrophils % 83.5 % (41.7-73.7); Platelets 411 thou/uL (152-406); RBC Red Blood Cell Count 4.02 M/uL (3.86-4.86); Red Cell Distribution Width 15.2 % (12.1-15.2)
[2024-12-30 11:05] LABS: Anion Gap 11.3 mEq/L (5.0-15.0); Phosphorus 2.9 mg/dL (2.5-4.9); Potassium 3.3 mEq/L (3.5-5.1)
[2024-12-30] MEDS ORDERED: WATER FOR INJ,STERILE 10 ML IM PRN (11:37)
[2024-12-30] MEDS ORDERED: ZIPRASIDONE MESYLA 20 MG/VIAL IM PRN (11:37)
--- NOTE | 2024-12-30 11:40 | P.PN ---
Subjective Date of Service: 12/30/24 Chief Complaint: Delirium right lower lobe pneumonia/alcohol abuse Patient is experiencing significant delirium at the bedside states that she drinks a lot at home explain her delirium in addition to hypokalemia which may be from the diuretics Review of Systems is unable to be obtained Physical Examination - Vital Signs Temperature: 97.6 F Blood Pressure: 143/85 Pulse: 105 Respirations: 14 Pulse Ox (%): 91 - Physical Exam General: Unresponsive Respiratory: Clear to auscultation bilaterally Cardiovascular: No edema, Normal pulses, Regular rate/rhythm Assessment And Plan - Current Problems (Diagnosis) (1) Community acquired bacterial pneumonia Current Visit: Yes Status: Acute Plan: Patient patient admitted with right lower lobe pneumonia stable white count is started declining (2) Delirium tremens Current Visit: Yes Status: Acute Plan: Patient CT scan of the head is negative most likely is from passive alcohol abuse continue with thiamine patient history responds well to antipsychotic have added Geodon as needed
[2024-12-30 12:01] LABS: Blood Morphology Comment NOT SEEN (NOT SEEN); Differential Total Cells Count 100; Lymphocytes 9 % (15-42); Monocytes 14 % (0-10); Platelet Estimate ADEQ; Segmented Neutrophils 77 % (40-80)
--- NOTE | 2024-12-30 12:38 | P.PN ---
Subjective Date of Service: 12/30/24 Chief Complaint: Delirium right lower lobe pneumonia/alcohol abuse Subjective: Comfortable in the bed and sleeping, hallucinations better with the medications last night, asked me not to wake her up. Objective: General appearance: comfortable and sleeping in the bed CVS: Normal S1 and S2 Lungs: Clear to auscultation bilaterally anteriorly Abdomen: Soft, bowel sounds present, no tenderness Extremities: No lower extremity edema Physical Examination - Vital Signs Temperature: 97.3 F Blood Pressure: 135/73 Pulse: 105 Respirations: 93 Pulse Ox (%): 95 Assessment And Plan - Plan 69-year-old female who is being admitted for sepsis after she pres ented with flulike symptoms. Patient received ceftriaxone and azithromycin in the ER. 1. Sepsis with Community-acquired pneumonia: Changed antibiotics to rocephin and doxy, follow-up on cultures. -will need f/u CT in few weeks to document resolution as per radiology 1a. hallucinations: CT head neg. DC levofloxacin 2. Hypokalemia, Hyponatremia, hypophosphatemia: Continue IV fluids and replace electrolytes. monitor closely 3. ALICIA: better, dc IV Fluids and monitor closely. 4. Hypertension, Hyperlipidemia: home meds Plan Discussed With family at bedside. d/w nursing staff
[2024-12-30] MEDS: POTASSIUM CL SA 10 MEQ TAB PO ONE ×2 (12:39→16:42)
[2024-12-30] MEDS: BENZONATATE 100 MG CAP PO PRN (16:41)
[2024-12-30] MEDS: GUAIFENESIN 600 MG SA TAB PO SCH (22:25)
[2024-12-30] MEDS: TRAZODONE 50 MG TABLET PO ONE (22:26)
[2024-12-31 08:35] LABS: Absolute Basophils 0.1 K/uL (0-0.5); Absolute Eosinophils 0.3 K/uL (0-0.5); Absolute Lymphocytes (CBC) 0.9 K/uL (0.7-4.9); Absolute Monocytes 2.3 K/uL (0.1-1.3); Absolute Neutrophil 13.7 K/uL (1.8-8.0); Basophils % 0.4 % (0-1.3); Eosinophils % 1.8 % (0-4.4); Hematocrit 39.3 % (36.0-45.0); Hemoglobin 13.3 g/dL (12.0-15.0); Lymphocytes % 5.2 % (15.3-44.8); MCH 31.8 pg (27.0-35.0); MCHC 33.8 g/dL (32.0-36.0); MCV 93.9 fL (80-100); MPV 7.4 fL (7.6-11.3); Monocytes % 13.1 % (3.3-12.3); Neutrophils % 79.5 % (41.7-73.7); Platelets 445 thou/uL (152-406); RBC Red Blood Cell Count 4.19 M/uL (3.86-4.86); Red Cell Distribution Width 15.2 % (12.1-15.2)
[2024-12-31 08:42] LABS: Anion Gap 11.4 mEq/L (5.0-15.0); Phosphorus 2.5 mg/dL (2.5-4.9); Potassium 3.4 mEq/L (3.5-5.1)
[2024-12-31 10:09] LABS: Band Neutrophils 3 % (0-1); Blood Morphology Comment NOT SEEN (NOT SEEN); Differential Total Cells Count 100; Eosinophils 2 % (0-3); Lymphocytes 6 % (15-42); Metamyelocytes 1 % (0-0); Monocytes 11 % (0-10); Platelet Estimate INCR; Segmented Neutrophils 73 % (40-80)
[2024-12-31] MEDS: METOPROLOL XL 50 MG TAB PO ONE (11:07)
--- NOTE | 2024-12-31 11:11 | P.PN ---
Subjective Date of Service: 12/31/24 Chief Complaint: Delirium right lower lobe pneumonia/alcohol abuse Subjective: No chest pain. Shortness of breath improving. No nausea or vomiting. No abdominal pain. No obvious bleeding. Looks comfortable in the bed. Complaining of some nasal congestion. Hallucinations better. Objective: General appearance: comfortable and alert CVS: Normal S1 and S2 Lungs: Clear to auscultation bilaterally Abdomen: Soft, bowel sounds present, no tenderness Extremities: No lower extremity edema Physical Examination - Vital Signs Temperature: 98.1 F Blood Pressure: 132/61 Pulse: 111 Respirations: 16 Pulse Ox (%): 92 Assessment And Plan - Plan 69-year-old female who is being admitted for sepsis after she presented with flulike symptoms. Patient receiving antibiotics, slowly improving, wean off oxygen, probably home in the next 1 to 2 days depending on clinical improvement. 1. Sepsis with Community-acquired pneumonia: Changed antibiotics to rocephin and doxy -will need f/u CT in few weeks to document resolution as per radiology 1a. hallucinations: CT head neg. DC levofloxacin. Hallucinations better today. 2. Hypokalemia, Hyponatremia, hypophosphatemia: given IV fluids and replace electrolytes. monitor closely 3. ALICIA: better, dc'd IV Fluids and monitor closely. 4. Hypertension, Hyperlipidemia: Continue statin, continue Norvasc, resume metoprolol today. Plan Discussed With patient and family at bedside, answered all questions. d/w nursing staff
[2024-12-31] MEDS: predniSONE 20 MG TAB PO ONE (16:11)
[2024-12-31] MEDS: ATORVASTATIN 80 MG TAB PO SCH (20:58)
[2024-12-31] MEDS: TRAZODONE 50 MG TABLET PO PRN (20:58)
[2024-12-31] MEDS ORDERED: TRAZODONE 50 MG TABLET PO ONE (21:55)
[2025-01-01 05:07] LABS: Absolute Lymphocytes (CBC) 0.9 K/uL (0.7-4.9); Absolute Monocytes 1.5 K/uL (0.1-1.3); Absolute Neutrophil 13.6 K/uL (1.8-8.0); Basophils % 0.1 % (0-1.3); Eosinophils % 0.1 % (0-4.4); Hematocrit 38.2 % (36.0-45.0); Lymphocytes % 5.4 % (15.3-44.8); MCH 31.8 pg (27.0-35.0); MCHC 33.9 g/dL (32.0-36.0); MCV 93.8 fL (80-100); MPV 7.4 fL (7.6-11.3); Monocytes % 9.3 % (3.3-12.3); Platelets 432 thou/uL (152-406); RBC Red Blood Cell Count 4.07 M/uL (3.86-4.86); Red Cell Distribution Width 15.5 % (12.1-15.2)
[2025-01-01 05:09] LABS: Neutrophils % 85.1 % (41.7-73.7)
[2025-01-01 05:22] LABS: Anion Gap 10.6 mEq/L (5.0-15.0); Magnesium 2.3 mg/dL (1.6-2.4); Phosphorus 3.3 mg/dL (2.5-4.9); Potassium 3.6 mEq/L (3.5-5.1)
[2025-01-01] MEDS: METOPROLOL XL 50 MG TAB PO SCH (06:00)
[2025-01-01] MEDS: POTASSIUM 25 MEQ EFFERV TAB PO ONE (06:50)
[2025-01-01 10:51] VITALS: O2SAT 93
--- NOTE | 2025-01-01 11:25 | EKG ---
Test Date: 2024-12-30 Test Time: 02:12:57 Administration Clerk: GILESG MEASUREMENT RESULTS: Intervals: Rate: 112 [place]: 172 QRSD: 100 QT: 336 QTc: 458 [place]: P: 67 DE: 172 QRS: 61 T: 48 INTERPRETIVE STATEMENTS: Sinus tachycardia Possible Left atrial enlargement Borderline ECG Compared to ECG 12/27/2024 16:24:30 Sinus rhythm no longer present ST (T wave) deviation no longer present Electronically Signed On 01-01-25 11:20:29 CDT by Speedy Land
[2025-01-01 12:15] VITALS: BP 121/77; TEMP 98.3
--- NOTE | 2025-01-01 12:52 | P.PN ---
Subjective Date of Service: 01/01/25 Chief Complaint: Right lower lobe pneumonia alcohol abuse Patient is doing much better today she is very alert responsive cooperative oriented stated that she drinks daily a bottle of wine Review of Systems 10-point ROS is otherwise unremarkable Physical Examination - Vital Signs Temperature: 98.3 F Blood Pressure: 121/77 Pulse: 88 Respirations: 20 Pulse Ox (%): 92 - Physical Exam General: Alert, Oriented x3 Neck: Supple Respiratory: Clear to auscultation bilaterally Cardiovascular: No edema, Regular rate/rhythm, Normal S1 S2 Assessment And Plan - Current Problems (Diagnosis) (1) Community acquired bacterial pneumonia Current Visit: Yes Status: Acute Plan: Patient admitted with right lower lobe pneumonia much better white count is declining will for discharge home on Levaquin for another few days (2) Delirium tremens Current Visit: Yes Status: Acute Plan: Delirium has resolved contributed by hypokalemia secondary to thiazide diuretics
[2025-01-02] MEDS ORDERED: levoFLOXacin 750 MG TAB PO SCH (09:00)
--- NOTE | 2025-01-11 12:16 | P.DS ---
Discharge Date: 01/01/25 Disposition: ROUTINE DISCHARGE Discharge Condition: GOOD Reason for Admission: Right lower lobe pneumonia alcohol abuse Brief History of Present Illness: Patient is a 69-year-old female brought into the ER with chief complai nt of cough, sore throat and bodyaches. Patient has been having difficulty breathing as well, arthralgia and low-grade fever. She has been found to have right lower lobe pneumonia. Patient meets criteria for sepsis. Her WBC is 18,000. Additional workup revealed a potassium of 2.1. This was repleted in the ER. Patient is being admitted for sepsis and electrolyte abnormalities. Hospital Course: Patient was treated with IV antibiotics and has clinically done well. Will changed over to oral antibiotics and discharge home with outpatient follow-up with PCP and Pulmonary in 1-2 weeks. Vital Signs/Physical Exam: Temp Pulse Resp BP Pulse Ox 98.3 F 88 20 121/77 92 01/01/25 12:52 01/01/25 12:52 01/01/25 12:52 01/01/25 12:52 01/01/25 12:52 General: Alert, In no apparent distress, Oriented x3 Laboratory Data at Discharge: WBC 16.00 thou/uL (4.3-10.9) H 01/01/25 04:56 Hgb 13.0 g/dL (12.0-15.0) 01/01/25 04:56 Hct 38.2 % (36.0-45.0) 01/01/25 04:56 Plt Count 432 thou/uL (152-406) H 01/01/25 04:56 PT 13.8 SECONDS (10-13.0) H 12/27/24 15:59 INR 1.22 12/27/24 15:59 Sodium 136 mEq/L (136-145) 01/01/25 04:56 Potassium Cancelled 01/01/25 12:30 BUN 14 mg/dL (7-18) 01/01/25 04:56 Creatinine 1.03 mg/dL (0.55-1.02) H 01/01/25 04:56 Glucose 140 mg/dL (74-106) H 01/01/25 04:56 Phosphorus 3.3 mg/dL (2.5-4.9) 01/01/25 04:56 Magnesium 2.3 mg/dL (1.6-2.4) 01/01/25 04:56 Total Bilirubin 0.6 mg/dL (0.2-1.0) 12/29/24 04:34 AST 78 U/L (15-37) H 12/29/24 04:34 ALT 74 U/L (13-56) H 12/29/24 04:34 Alkaline Phosphatase 139 U/L (45-117) H 12/29/24 04:34 Home Medications: Acyclovir [Zovirax] 200 mg PO 5XD 12/29/24 Amlodipine Besylate 10 mg PO DAILY 12/29/24 Atorvastatin Calcium [Lipitor] 80 mg PO BEDTIME 12/29/24 Duloxetine HCl [Cymbalta] 30 mg PO BID 12/29/24 Metoprolol Succinate [Toprol Xl*] 50 mg PO DAILY 12/29/24 Montelukast [Singulair*] 10 mg PO DAILY 12/29/24 Rosuvastatin Calcium [Crestor] 40 mg PO DAILY 12/29/24 Albuterol Inhaler [Ventolin Inhaler*] 2 puff IH Q6H PRN #1 inh 01/01/25 Albuterol Neb [Proventil 0.083% Neb Soln] 2.5 mg IH Q6H PRN #60 amp 01/01/25 Benzonatate [Tessalon Perle*] 100 mg PO Q6H PRN #30 cap 01/01/25 Ipratropium Neb [Atrovent*] 0.5 mg NEB [id number] #60 amp 01/01/25 Nebulizer 1 each MC DAILY #1 ea 01/01/25 Nebulizer Accessories [Aeroneb Go] 1 each MC DAILY #1 ea 01/01/25 levoFLOXacin [Levaquin*] 750 mg PO DAILY #5 tab 01/01/25 predniSONE [Deltasone] 20 mg PO BID #11 tab 01/01/25 New Medications: Nebulizer Accessories [Aeroneb Go] 1 each MC DAILY #1 ea Ipratropium Neb [Atrovent*] 0.5 mg NEB [id number] #60 amp levoFLOXacin [Levaquin*] 750 mg PO DAILY #5 tab Nebulizer 1 each MC DAILY #1 ea predniSONE [Deltasone] 20 mg PO BID #11 tab Albuterol Neb [Proventil 0.083% Neb Soln] 2.5 mg IH Q6H PRN #60 amp PRN Reason: Wheezing Benzonatate [Tessalon Perle*] 100 mg PO Q6H PRN #30 cap PRN Reason: Cough Albuterol Inhaler [Ventolin Inhaler*] 2 puff IH Q6H PRN #1 inh PRN Reason: Shortness Of Breath Physician Discharge Instructions: [facility] Manager Recovery Call Kellee Martinez RN at [phone] for questions or concerns after discharge. Expect a call within 1-2 business days of discharge. Alternate: Rosalinda Mejia RN at [phone] [facility] Continuing Manager Recovery: CHULA Vzáquez [phone]. Expect a call within 1-2 business days from discharge. Call with questions or concerns. Alternate: CHULA Gorman [phone]. -DC IV and DC home -Follow-up with PCP in 1 to 2 weeks -Follow-up with Pulmonary in 1 to 2 weeks -Please try to see PCP and get CXR in 1-2 weeks to make sure resolution of the pneumonia -Please call Dr. Claros at [phone] if any questions regarding hospital stay -Please call nursing station at [phone] if any nursing or medication quest ions -Return to the emergency room if symptoms worsen Diet: AHA Activity: Fall precautions Followup: Tami Ma, [employer] [Primary Care Provider] - 1-2 Weeks Time spent managing pt's care (in minutes): 35
== END 2025-01-01 14:50 | disposition home or self-care (01) | DRG 871 ==
LOC: ER 12:25 → ERHOLD 16:51 → 2ND 12-28 11:37
PROVIDERS: ADMIT Hospitalist; ATTEND Hospitalist
DX: A41.9 Sepsis, unspecified organism (principal); G93.41 Metabolic encephalopathy; J15.9 Unspecified bacterial pneumonia; F10.231 Alcohol dependence with withdrawal delirium; E87.1 Hypo-osmolality and hyponatremia; N17.9 Acute kidney failure, unspecified; E83.39 Other disorders of phosphorus metabolism; I10 Essential (primary) hypertension; Z68.31 Body mass index [BMI] 31.0-31.9, adult; E87.6 Hypokalemia; E78.5 Hyperlipidemia, unspecified; R63.0 Anorexia; Z11.52 Encounter for screening for COVID-19
CPT/HCPCS: 36415; 70450; 71046; 71250; 74176; 80048; 80053; 80076; 81001; 83605; 83735; 83880; 84100; 84132; 84484; 85025; 85610; 87040; 87070; 87428; 93005; 94640; 96361; 96365; 96366; 96367; 96368; 96375; 99285; J0696; J1630; J1644; J1650; J2543; J3411; J3480; J7030; J7050; J7512; J7613; J7614; J7644

== ENCOUNTER 2025-06-03 10:38 | Inpatient (IN) | payer OTHER ==
[2025-06-03] MEDS ORDERED: NA CHLORIDE 0.9% 1,000 ML ONE (11:34)
[2025-06-03] MEDS ORDERED: MORPHINE 4 MG/ML SYR ONE (11:34)
[2025-06-03] MEDS ORDERED: ONDANSETRON 4 MG/2 ML VIAL ONE (11:34)
[2025-06-03 11:36] LABS: Absolute Lymphocytes (CBC) 1.2 K/uL (0.7-4.9); Hematocrit 43.8 % (36.0-45.0); Hemoglobin 14.7 g/dL (12.0-15.0); MCH 31.5 pg (27.0-35.0); MCHC 33.5 g/dL (32.0-36.0); MCV 94.2 fL (80-100); MPV 7.5 fL (7.6-11.3); Nucleated RBC Absolute Count 0.0 (0-0); Nucleated Red Blood Cells % 0.0 % (0-0); RBC Red Blood Cell Count 4.65 M/uL (3.86-4.86); White Blood Count 8.10 thou/uL (4.3-10.9)
[2025-06-03 11:43] LABS: PT Prothrombin Time 12.8 SECONDS (10-13.0); Protime INR 1.14
[2025-06-03] MEDS ORDERED: PIPERACIL/TAZO 3.375 GM VIAL IV ONE (11:43)
--- NOTE | 2025-06-03 11:52 | ER ---
Nurse's Notes [facility] Name: Eileen Palacio Age: 69 yrs Sex: Female : 1955 Arrival Date: 06/03/2025 Time: 10:38 Bed 8 Private MD: Diagnosis: Cutaneous abscess of chest wall-WITH CELLULITIS;Dyspnea Presentation: 06/03 10:51 Chief complaint: Patient states: SOB and dizziness started yesterday. R knee started ll1 hurting worse than usual. R total knee replacement last week with Dr. Sheehan. Coronavirus screen: Client denies travel out of the [place] in the last 14 days. difficulty breathing, fatigue, Client presents with at least one sign or symptom that may indicate coronavirus-19. Standard/surgical mask placed on the client. Ebola Screen: Patient denies travel to an Ebola-affected area in the 21 days before illness onset. Initial Sepsis Screen: Does the patient meet any 2 criteria? No. Patient's initial sepsis screen is negative. Does the patient have a suspected source of infection? No. Patient's initial sepsis screen is negative. Risk Assessment: Do you want to hurt yourself or someone else? Patient reports no desire to harm self or others. Onset of symptoms was June 02, 2025. 10:51 Method Of Arrival: Wheelchair ll1 10:51 Acuity: JOSE LUIS 3 ll1 Historical: - Allergies: 10:48 No Known Allergies; ll1 - PMHx: 10:48 Arthritis; chronic back pain; High Cholesterol; Hypertension; neck stenosis; ll1 - PSHx: 10:48 Leg - Left; R knee replacement; ll1 - Immunization history:: Adult Immunizations up to date. - Social history:: Smoking status: Patient denies any tobacco usage or history of. Vital Signs: 10:51 BP 154 / 91; Pulse 113; Resp 17; Temp 97.2; Pulse Ox 98% on R/A; Weight 90.72 kg; ll1 Height 5 ft. 10 in. ; Pain 6/10; 13:04 BP 127 / 75; Pulse 97; Resp 19; Temp 98.9; Pulse Ox 99% ; bp 10:51 Body Mass Index 28.70 (90.72 kg, 177.8 cm) ll1 10:51 Pain Scale: Adult ll1 ED Course: 10:41 Patient arrived in ED. al6 10:48 Arm band placed on Patient placed in an exam room, on a stretcher. ll1 10:49 Everardo Olivera, RN is Primary Nurse. bp 10:50 Berlin Lagunas MD is Attending Physician. ladan 10:53 Triage completed. ll1 11:22 Initial lab(s) drawn, by me, sent to lab. COVID swab sent to lab. Flu and/or RSV swab bp sent to lab. Inserted saline lock: 22 gauge in right antecubital area, using aseptic technique. Blood collected. Flushed with 10 mL NS. 11:39 XRAY Chest (1 view) In Process Unspecified. EDMS 11:49 US Extremity Venous W Compression Gene In Process Unspecified. EDMS 11:51 Prince Adam MD is Hospitalizing Provider. ladan 12:45 CT Chest For PE Angio In Process Unspecified. EDMS Administered Medications: 11:41 Drug: NS 0.9% IV 500 ml 500 ml IV at 1 bolus once; to be given as a bolus over 30 bp minutes Volume: 500 ml; Route: IV; Rate: 1 bolus; Site: right antecubital; 11:41 Drug: NS 0.9% IV 500 ml 500 ml IV at 100 ml/hr once Volume: 500 ml; Route: IV; Rate: bp 100 ml/hr; Site: right antecubital; 11:42 Drug: morphine IVP or IV 4 mg IVP once over 4 mins Route: IVP; Infused Over: 4 mins; bp Site: right antecubital; 11:42 Drug: Ondansetron IVP 4 mg IVP once; over 2 minutes Route: IVP; Site: right antecubital;bp 11:46 Drug: Piperacillin-Tazobactam IVPB 3.375 grams IVPB once over 60 mins; (mix in NS 100 bp mL) Route: IVPB; Infused Over: 60 mins; Site: right antecubital; Outcome: 11:52 Decision to Hospitalize by Provider. ladan 15:36 Patient left the ED. Signatures: Dispatcher [employer] EDMS Berlin Lagunas MD MD cha Blanchard, Shelby, RN RN Everardo Olivera RN RADHA bp Abril Brar RN RN ll1 Virginia Perry al6
[2025-06-03 11:53] LABS: Influenza A Ag Negative; Influenza B Ag Negative; SARS-CoV-2 Antigen Rapid Res Negative (Negative)
--- NOTE | 2025-06-03 11:53 | EDPHYS ---
Physician Documentation [facility] Name: Eileen Palacio Age: 69 yrs Sex: Female : 1955 Arrival Date: 06/03/2025 Time: 10:38 Bed 8 Private MD: DEVIN Physician Berlin Lagunas HPI: 06/03 11:39 This 69 yrs old Female presents to ER via Wheelchair with complaints of ladan Breathing Difficulty, chest problem. 11:39 The patient has shortness of breath at rest, with light activity. Onset: The ladan symptoms/episode began/occurred 3 day(s) ago. Duration: The symptoms are continuous. Historical: - Allergies: 10:48 No Known Allergies; ll1 - PMHx: 10:48 Arthritis; chronic back pain; High Cholesterol; Hypertension; neck stenosis; ll1 - PSHx: 10:48 Leg - Left; R knee replacement; ll1 - Immunization history:: Adult Immunizations up to date. - Social history:: Smoking status: Patient denies any tobacco usage or history of. ROS: 11:47 Constitutional: Negative for fever, chills, and weight loss, Eyes: Negative for injury, ladan pain, redness, and discharge, ENT: Negative for injury, pain, and discharge, Neck: Negative for injury, pain, and swelling, Cardiovascular: Negative for chest pain, palpitations, and edema, Respiratory: Negative for shortness of breath, cough, wheezing, and pleuritic chest pain, Abdomen/GI: Negative for abdominal pain, nausea, vomiting, diarrhea, and constipation, Back: Negative for injury and pain, : Negative for injury, bleeding, discharge, and swelling, MS/Extremity: Negative for injury and deformity, Neuro: Negative for headache, weakness, numbness, tingling, and seizure, Psych: Negative for depression, anxiety, suicide ideation, homicidal ideation, and hallucinations, Allergy/Immunology: Negative for hives, rash, and allergies, Endocrine: Negative for neck swelling, polydipsia, polyuria, polyphagia, and marked weight changes, Hematologic/Lymphatic: Negative for swollen nodes, abnormal bleeding, and unusual bruising, 11:47 Skin: Positive for abscess, erythema, swelling, of the chest, Exam: 11:47 Constitutional: This is a well developed, well nourished patient who is awake, alert, ladan and in no acute distress. Head/Face: Normocephalic, atraumatic. Eyes: Pupils equal round and reactive to light, extra-ocular motions intact. Lids and lashes normal. Conjunctiva and sclera are non-icteric and not injected. Cornea within normal limits. Periorbital areas with no swelling, redness, or edema. ENT: Nares patent. No nasal discharge, no septal abnormalities noted. Tympanic membranes are normal and external auditory canals are clear. Oropharynx with no redness, swelling, or masses, exudates, or evidence of obstruction, uvula midline. Mucous membranes moist. Neck: Trachea midline, no thyromegaly or masses palpated, and no cervical lymphadenopathy. Supple, full range of motion without nuchal rigidity, or vertebral point tenderness. No Meningismus. Chest/axilla: Normal chest wall appearance and motion. Nontender with no deformity. No lesions are appreciated. Cardiovascular: Regular rate and rhythm with a normal S1 and S2. No gallops, murmurs, or rubs. Normal PMI, no JVD. No pulse deficits. Respiratory: Lungs have equal breath sounds bilaterally, clear to auscultation and percussion. No rales, rhonchi or wheezes noted. No increased work of breathing, no retractions or nasal flaring. Abdomen/GI: Soft, non-tender, with normal bowel sounds. No distension or tympany. No guarding or rebound. No evidence of tenderness throughout. Back: No spinal tenderness. No costovertebral tenderness. Full range of motion. Female : Normal external genitalia. MS/ Extremity: Pulses equal, no cyanosis. Neurovascular intact. Full, normal range of motion., bilateral aka Neuro: Awake and alert, GCS 15, oriented to person, place, time, and situation. Cranial nerves II-XII grossly intact. Motor strength 5/5 in all extremities. Sensory grossly intact. Cerebellar exam normal. Normal gait. Psych: Awake, alert, with orientation to person, place and time. Behavior, mood, and affect are within normal limits. 11:47 ECG was reviewed by the Attending Physician. 11:47 Musculoskeletal/extremity: Circulation is intact in all extremities. Sensation intact. Compartment Syndrome exam of affected extremity: is normal. Joints: All joints appear normal with full range of motion. DVT Exam: No signs of deep vein thrombosis. no pain, no swelling, no tenderness, negative Homans' sign noted on exam, no appreciated bluish discoloration, no erythema, no increased warmth, 11:47 Skin: abscess, that is small, of the chest, cellulitis, that is mild, that is moderate, induration, that is mild is noted, that is moderate is noted, injury, is not appreciated, no rash present. 11:47 Neuro: Exam negative for acute changes, focal neuro deficits, motor deficits, sensory deficits, cerebellar deficits, altered mental status, Orientation: is normal, Mentation: is normal, Memory: is normal, Cranial nerves: grossly normal, is grossly normal based on the patient's age, no acute changes, Cerebellar function: is grossly normal, is grossly normal based on the patient's age, no acute changes, Motor: moves all fours, strength is normal, 11:58 ECG was reviewed by the Attending Physician. [facility] Vital Signs: 10:51 BP 154 / 91; Pulse 113; Resp 17; Temp 97.2; Pulse Ox 98% on R/A; Weight 90.72 kg; ll1 Height 5 ft. 10 in. ; Pain 6/10; 13:04 BP 127 / 75; Pulse 97; Resp 19; Temp 98.9; Pulse Ox 99% ; bp 10:51 Body Mass Index 28.70 (90.72 kg, 177.8 cm) ll1 10:51 Pain Scale: Adult ll1 MDM: 10:50 Medical Screening Exam initiated ladan 11:49 Differential diagnosis: Anemia Anxiety Reaction asthma, Bronchitis CHF exacerbation, ladan pneumonia, Pneumothorax pulmonary edema, Pulmonary Embolism reactive airway disease, Sepsis Unstable Angina. Antibiotic administration: ZOSYN. Immunization status: Pneumococcal vaccine: within last 5 years. Influenza vaccine: within last 5 years. Data reviewed: vital signs, nurses notes, lab test result(s), EKG, radiologic studies, CT scan, doppler, plain films. Consideration of Admission/Observation Patient was admitted/placed on observation. Escalation of care including admission/observation considered. I considered the following discharge prescriptions or medication management in the emergency department Medications were administered in the Emergency Department. See MAR. Independent interpretation of the following test(s) in the Emergency Department EKG: See my EKG interpretation above. Test considered but Not performed: MRI: NO MRCP. Historians other than the Patient: Spouse/Significant Other: WELL INFORMED. 06/03 10:52 Order name: Basic Metabolic Panel [facility] 06/03 10:52 Order name: CBC with Diff; Complete Time: 11:[address] [facility] 06/03 10:52 Order name: LFT's [facility] 06/03 10:52 Order name: Magnesium [facility] 06/03 10:52 Order name: NT PRO-BNP [facility] 06/03 10:52 Order name: PT-INR; Complete Time: 11:[address] [facility] 06/03 10:52 Order name: Troponin HS [facility] 06/03 10:52 Order name: COVID-19 Ag + Flu A+B Ag; Complete Time: 11:[address] [facility] 06/03 10:52 Order name: Lipase [facility] 06/03 12:32 Order name: Basic Metabolic Panel EDMS 06/03 12:32 Order name: Basic Metabolic Panel EDMS 06/03 12:32 Order name: Basic Metabolic Panel EDMS 06/03 12:32 Order name: Basic Metabolic Panel EDMS 06/03 12:32 Order name: Basic Metabolic Panel EDMS 06/03 12:32 Order name: Basic Metabolic Panel EDMS 06/03 12:32 Order name: CBC with Automated Diff EDMS 06/03 12:32 Order name: CBC with Automated Diff EDMS 06/03 12:32 Order name: CBC with Automated Diff EDMS 06/03 12:32 Order name: CBC with Automated Diff EDMS 06/03 12:32 Order name: CBC with Automated Diff EDMS 06/03 12:32 Order name: CBC with Automated Diff EDMS 06/03 12:32 Order name: Magnesium EDMS 06/03 12:32 Order name: Magnesium EDMS 06/03 12:32 Order name: Magnesium EDMS 06/03 12:32 Order name: Magnesium EDMS 06/03 12:32 Order name: Magnesium EDMS 06/03 12:32 Order name: Magnesium EDMS 06/03 12:32 Order name: Phosphorus EDMS 06/03 12:32 Order name: Phosphorus EDMS 06/03 12:32 Order name: Phosphorus EDMS 06/03 12:32 Order name: Phosphorus EDMS 06/03 12:32 Order name: Phosphorus EDMS 06/03 12:32 Order name: Phosphorus EDMS 06/03 10:52 Order name: XRAY Chest (1 view) [facility] 06/03 10:52 Order name: CT Chest For PE Angio [facility] 06/03 10:52 Order name: US Extremity Venous W Compression Gene [facility] 06/03 10:52 Order name: EKG; Complete Time: 10:[address] [facility] 06/03 12:32 Order name: CONS Physician Consult EDAK 06/03 10:52 Order name: Cardiac monitoring; Complete Time: 11:[address] [facility] 06/03 10:52 Order name: EKG - Nurse/Tech; Complete Time: 11:[address] [facility] 06/03 10:52 Order name: IV Saline Lock; Complete Time: 11: [facility] 06/03 10:52 Order name: Labs collected and sent; Complete Time: 11: [facility] 06/03 10:52 Order name: O2 Per Protocol; Complete Time: 11: [facility] 06/03 10:52 Order name: O2 Sat Monitoring; Complete Time: : [facility] EC:58 Rate is 106 beats/min. Rhythm is regular. ID interval is normal. QRS interval is ladan normal. QT interval is normal. No Q waves. T waves are Normal. No ST changes noted. Clinical impression: NSR w/ Non-specific ST/T Changes and No evidence of ischemia. Interpreted by me. Reviewed by me. Administered Medications: 11:41 Drug: NS 0.9% IV 500 ml 500 ml IV at 1 bolus once; to be given as a bolus over 30 bp minutes Volume: 500 ml; Route: IV; Rate: 1 bolus; Site: right antecubital; 11:41 Drug: NS 0.9% IV 500 ml 500 ml IV at 100 ml/hr once Volume: 500 ml; Route: IV; Rate: bp 100 ml/hr; Site: right antecubital; 11:42 Drug: morphine IVP or IV 4 mg IVP once over 4 mins Route: IVP; Infused Over: 4 mins; bp Site: right antecubital; 11:42 Drug: Ondansetron IVP 4 mg IVP once; over 2 minutes Route: IVP; Site: right antecubital;bp 11:46 Drug: Piperacillin-Tazobactam IVPB 3.375 grams IVPB once over 60 mins; (mix in NS 100 bp mL) Route: IVPB; Infused Over: 60 mins; Site: right antecubital; Disposition Summary: 06/03/25 11:52 Hospitalization Ordered Notes: Hospitalization Status: Observation ladan Provider: Prince ladan Adam Location: Telemetry/MedSurg (observation) ladan Condition: Stable ladan Problem: new ladan Symptoms: have improved ladan Bed/Room Type: Standard ladan Room Assignment: 427(06/03/25 13:06) eb Diagnosis - Cutaneous abscess of chest wall - WITH CELLULITIS ladan - Dyspnea ladan Forms: - Medication Reconciliation Form ladan - SBAR form ladan - Leadership Thank You Letter ladan Signatures: Dispatcher [employer] EDBerlin Graf MD MD cha Peltier, Brian, RN RN bp Botello, Elizabeth eb Lewis, Lynsay, RN RN ll1 Corrections: (The following items were deleted from the chart) 12:38 11:52 ladan eb 13:06 12:38 407 eb eb
--- NOTE | 2025-06-03 12:06 | RAD REPORT ---
EXAMINATION: US bilateral LOWER EXTREMITY VENOUS DOPPLER CLINICAL INDICATION: Leg pain TECHNIQUE: Sonographic evaluation of the veins of the lower extremity bilaterally formed.Grayscale, c olor and spectral analysis performed on all vessels COMPARISON: No prior exam. FINDINGS: The common femoral, superficial femoral, greater saphenous, popliteal and posterior tibial veins bila terally are compressible and demonstrate augmentation. Doppler demonstrates good flow. IMPRESSION: No evidence of deep venous thrombosis involving either lower extremity
[2025-06-03 12:09] LABS: ALT/SGPT 18.0 U/L (13-56); AST/SGOT 17.0 U/L (15-37); Albumin 3.5 g/dL (3.4-5.0); Albumin/Globulin Ratio 0.9 (1.1-1.8); Alkaline Phosphatase 116.0 U/L (45-117); Anion Gap 8.5 mEq/L (5.0-15.0); BUN Blood Urea Nitrogen 8.0 mg/dL (7-18); Bilirubin Indirect, Calculated 0.5 mg/dL (0.2-0.8); Globulin 4.0 g/dL (2.3-3.5); Glucose Level 139.0 mg/dL (74-106); Lipase 21.0 U/L (13-75); Magnesium 1.8 mg/dL (1.6-2.4); NT PRO-BNP 59.0 pg/mL (<125); Potassium 3.5 mEq/L (3.5-5.1); Troponin High Sensitivity 5.5 pg/mL (<58.9)
[2025-06-03] MEDS ORDERED: ONDANSETRON 4 MG/2 ML VIAL IV PRN (12:26)
[2025-06-03] MEDS ORDERED: ACETAMINOPHEN 325 MG TABLET PO PRN (12:26)
[2025-06-03] MEDS: VANCOMYCIN 1 GM in NA CHLORIDE 0.9% 250 ML IVPB SCH (12:37)
--- NOTE | 2025-06-03 12:53 | P.HP ---
Certification for Inpatient Patient admitted to: Inpatient With expected LOS: >2 Midnights Practitioner: I am a practitioner with admitting privileges, knowledge of patient current condition, hospital course, and medical plan of care. Services: Services provided to patient in accordance with Admission requirements found in Title 42 Section 412.3 of the Code of Federal Regulations Patient History Date of Service: 06/03/25 Reason for admission: anterior chest wall abscess History of Present Illness: Eileen Palacio is a 69 year old female with pmhx Arthritis, chronic back pain, HTN, High Cholesterol, Hypertension, neck stenosis, who presents to the ED with an abscess to anterior chest wall. She reports this abscess starting as a white head that her popped and drained on . She was seen by her PCP who scheduled a procedure to jose elias the abscess later this week and gave her clindamycin. Eileen reports this abscess has grown and become more tender and now she feels "bad all over as if she has a blood infection." Her at the bedside reports the abscess is very sore and tender that the sheets on the bed are causing pain. She denies fever, chills, SOB, and CP. Of note: Eileen had a Right total knee in March which a DVT in her ankle was found in April, she was on Eliquis with last dose ten days ago. CTA chest reports "No evidence of a pulmonary embolism. Resolution of the right lower lobe pneumonia. 1.7 cm abscess suspected anterior upper chest to the right of midline within the subcutaneous tissues." Chest x-ray reports "No acute abnormality is displayed." Bilateral lower extremity venous ultrasound report "No evidence of deep venous thrombosis involving either lower extremity" Eileen will be admitted to hospitalist service for further treatment of anterior chest wall abscess. Dr. Lopez consulted. Allergies No Known Allergies Allergy (Unverified 12/27/24 21:13) Home Medications: Acyclovir [Zovirax] 200 mg PO 5XD 12/29/24 Amlodipine Besylate 10 mg PO DAILY 12/29/24 Atorvastatin Calcium [Lipitor] 80 mg PO BEDTIME 12/29/24 Duloxetine HCl [Cymbalta] 30 mg PO BID 12/29/24 Metoprolol Succinate [Toprol Xl*] 50 mg PO DAILY 12/29/24 Montelukast [Singulair*] 10 mg PO DAILY 12/29/24 Rosuvastatin Calcium [Crestor] 40 mg PO DAILY 12/29/24 Albuterol Inhaler [Ventolin Inhaler*] 2 puff IH Q6H PRN #1 inh 01/01/25 Albuterol Neb [Proventil 0.083% Neb Soln] 2.5 mg IH Q6H PRN #60 amp 01/01/25 Benzonatate [Tessalon Perle*] 100 mg PO Q6H PRN #30 cap 01/01/25 Ipratropium Neb [Atrovent*] 0.5 mg NEB [id number] #60 amp 01/01/25 Nebulizer 1 each MC DAILY #1 ea 01/01/25 Nebulizer Accessories [Aeroneb Go] 1 each MC DAILY #1 ea 01/01/25 levoFLOXacin [Levaquin*] 750 mg PO DAILY #5 tab 01/01/25 predniSONE [Deltasone] 20 mg PO BID #11 tab 01/01/25 - Past Medical/Surgical History -: Hypertension -: Chronic back pain -: arthritis -: HLD -: Right TKA - Social History Smoking Status: Never smoker Alcohol use: Yes CD- Drugs: No Review of Systems Other: Per HPI Physical Examination - Physical Exam General: Alert, In no apparent distress, Oriented x3 HEENT: Atraumatic, Normocephalic, PERRLA Neck: Supple Respiratory: Clear to auscultation bilaterally, Normal air movement Cardiovascular: Normal pulses, Regular rate/rhythm Capillary refill: <2 Seconds Gastrointestinal: Normal bowel sounds, Soft and benign Musculoskeletal: No clubbing Integumentary: Skin breakdown (anterior chest wall) Neurological: Normal speech, Normal tone - Studies Laboratory Data (last 24 hrs) 06/03/25 06/03/25 06/03/25 11:20 11:20 11:20 WBC 8.10 Hgb 14.7 Hct 43.8 Plt Count 307 PT 12.8 INR 1.14 Sodium 139 Potassium 3.5 BUN 8 Creatinine 0.94 Glucose 139 H Magnesium 1.8 Total Bilirubin 0.7 AST 17 ALT 18 Alkaline Phosphatase 116 Lipase 21 Assessment and Plan - Plan Assessment and Plan Anterior chest wall abscess -CTA chest reports "No evidence of a pulmonary embolism. Resolution of the right lower lobe pneumonia. 1.7 cm abscess suspected anterior upper chest to the right of midline within the subcutaneous tissues." -Chest x-ray reports "No acute abnormality is displayed." -Dr. Lopez consulted -Cefepime and vanc -Gentle IVF -Pain control -Monitor for fever and elevated white count Right total knee arthroplasty Hx DVT right LE -Bilateral lower extremity venous ultrasound report "No evidence of deep venous thrombosis involving either lower extremity" -Last Eliquis dose was 10 days ago Arthritis chronic back pain HTN High Cholesterol Hypertension neck stenosis -Continue home medications DVT ppx SCD Full code LOS 2 days Discharge Plan: Home Plan to discharge in: 48 Hours - Advance Directives Does patient have a Living Will: Yes Does patient have a Durable POA for Healthcare: No Time Spent Managing Pts Care (In Minutes): 60
--- NOTE | 2025-06-03 13:06 | RAD REPORT ---
Procedure: Chest Single View HISTORY: Shortness of breath COMPARISON: December 2024 FINDINGS: The lungs appear clear of acute infiltrate. No significant pleural effusion noted. The heart is normal size. IMPRESSION: No acute abnormality is displayed.
--- NOTE | 2025-06-03 13:06 | RAD REPORT ---
EXAMINATION: CTA CHEST PE CLINICAL INDICATION: Chest pain TECHNIQUE: 100 cc 370 Isovue administered intravenously. This examination was performed according to an angiographic protocol with 3D post-processing. This involves 3D reconstructions, MIPs, volume rendered images and/or shaded surface rendering. One or more of the following dose reduction techniqu es were used: Automated exposure control, adjustment of the mA and/or kV according to patient size, and/or iterative reconstruction. Unless otherwise specified, incidental findings do not require dedic ated imaging follow-up. [id number]. COMPARISON: December 2024 FINDINGS: A pulmonary embolus is not seen. An aortic aneurysm not noted. No pleural effusion. No pericardial effusion. Lungs are clear. 1.7 cm low-density mass anterior subcutaneous tissue upper chest to the right of midline contains an air bubble. There is surrounding edema within the fat. This probably represents an abscess. IMPRESSION: No evidence of a pulmonary embolism Resolution of the right lower lobe pneumonia 1.7 cm abscess suspected anterior upper chest to the right of midline within the subcutaneous tissues
[2025-06-03] MEDS: CEFEPIME 1 GM in NA CHLORIDE 0.9% 100 ML IV SCH (15:19)
[2025-06-03] MEDS: NA CHLORIDE 0.9% 1,000 ML IV SCH (15:19)
[2025-06-03 15:25] VITALS: BMI 28.7
[2025-06-03] MEDS: VANCOMYCIN 1.75 GM in NA CHLORIDE 0.9% 500 ML IVPB SCH (16:08)
[2025-06-03] MEDS: HYDROCODONE/APAP 7.5/325 MG TAB PO PRN (17:42)
[2025-06-03] MEDS: ROSUVASTATIN 10 MG TAB PO SCH (20:04)
[2025-06-03] MEDS: DIPHENHYDRAMINE 25 MG TAB/CAP PO ONE (20:05)
[2025-06-04] MEDS: MORPHINE 4 MG/ML SYR IV ONE (05:17)
[2025-06-04 05:35] LABS: Absolute Lymphocytes (CBC) 1.1 K/uL (0.7-4.9); Hematocrit 39.5 % (36.0-45.0); Hemoglobin 13.4 g/dL (12.0-15.0); MCH 31.9 pg (27.0-35.0); MCHC 33.9 g/dL (32.0-36.0); MCV 94.2 fL (80-100); MPV 7.2 fL (7.6-11.3); Nucleated RBC Absolute Count 0.0 (0-0); Nucleated Red Blood Cells % 0.1 % (0-0); RBC Red Blood Cell Count 4.19 M/uL (3.86-4.86); White Blood Count 8.70 thou/uL (4.3-10.9)
[2025-06-04 05:48] LABS: Anion Gap 6.6 mEq/L (5.0-15.0); BUN Blood Urea Nitrogen 7.0 mg/dL (7-18); Glucose Level 127.0 mg/dL (74-106); Magnesium 1.7 mg/dL (1.6-2.4); Potassium 3.6 mEq/L (3.5-5.1)
[2025-06-04] MEDS: KCL 20 MEQ/100 mL IVPB 20 MEQ/100 ML BAG IV SCH (09:00)
[2025-06-04] MEDS: MAGNESIUM SULFATE 1 gm IVPB 1 GM/100 ML BAG IV ONE ×2 (09:00→12:00)
[2025-06-04] MEDS: Ringers Lactate 1,000 ML IV ONE (09:07)
[2025-06-04] MEDS ORDERED: FENTANYL CITR 100 MCG/2 ML ONE (09:40)
[2025-06-04] MEDS ORDERED: MIDAZOLAM HCL 2 MG/2 ML INJ ONE (09:40)
[2025-06-04] MEDS ORDERED: LIDOCAINE 1% MPF 2 ML AMPULE ONE (09:43)
[2025-06-04] MEDS: LIDOCAINE HCL/EPINEPHRINE 20 ML MDV ONE (09:44)
[2025-06-04] MEDS ORDERED: KETOROLAC 30 MG/ML INJ ONE (09:54)
[2025-06-04] MEDS ORDERED: ONDANSETRON 4 MG/2 ML VIAL ONE (09:54)
--- NOTE | 2025-06-04 10:21 | P.OP ---
Preoperative diagnosis: Central Chest Infected Cyst with Abscess Postoperative diagnosis: Central Chest Infected Cyst with Abscess Primary procedure: Excisional Debridment of Central Chest Infected Cyst with Abscess Anesthesia: GETA + Local Estimated blood loss: <5cc Specimen: Cultures, Debridement Tissue Findings: ~ 3cm x 3cm x 4cm infected cyst of cental chest Complications: None Transferred to: Recovery Room Condition: Good
[2025-06-04 11:01] VITALS: BP 128/60; O2SAT 98
--- NOTE | 2025-06-04 11:04 | OP ---
Date of Procedure: 06/04/2025 Surgeon: Kehinde Lopez MD, Preoperative Diagnosis: Central chest infected cyst with abscess. Postoperative Diagnosis: Central chest infected cyst with abscess. Procedure Performed: Excisional debridement of central chest infected cyst with abscess. Anesthesia: General endotracheal plus local 1% lidocaine with epinephrine. Estimated Blood Loss: 5 cc. Specimens: Culture sent both aerobic, anaerobic speciation, and debridement tissue. Findings: A 3 cm x 3 cm x 4 cm infected cyst of the central chest. Complications: None. Disposition: The patient was transferred to recovery room in good condition. Procedure In Detail: After informed consent was obtained, the patient was brought to the operating r oom, prepped and draped in usual sterile fashion. After adequate anesthesia was achieved, I anesthet ized an area of the central chest around an obvious infected sebaceous cyst, circumferentially dissec kehinde down with a 15 blade in elliptical fashion to include the cyst cavity and the nidus of the infect ion, which was the overlying skin which was infected as well. Ultimately, dissecting down to enter i nto the abscess cavity. This was cultured for both aerobic and anaerobic speciation at this point. I then proceeded to remove the entirety of the cyst cavity for the size as described above with elect rocautery, sent it off for examination. At this point, the area was copiously irrigated and hemostas is achieved with electrocautery. I then partially reapproximated the proximal and distal aspect of t he incision with a 3-0 nylon suture. The center portion remained open and packed with Vashe soaked p acking material and a sterile dressing placed over top. The patient tolerated the procedure without complication and transferred to PACU in good condition. All counts were correct at the end of the ca se. TK/MODL Voice ID: [id number] Report ID: [id number]
[2025-06-04] MEDS ORDERED: POTASSIUM CL SA 10 MEQ TAB PO ONE (12:00)
[2025-06-04] MEDS: ASPIRIN 81 MG CHEWABLE TABLET PO SCH (12:04)
[2025-06-04] MEDS: METOPROLOL XL 50 MG TAB PO SCH (12:04)
[2025-06-04] MEDS: AMLODIPINE 10 MG TAB PO SCH (12:04)
--- NOTE | 2025-06-04 12:04 | CON ---
Date of Consultation: 06/04/2025 Brief History Of Present Illness: The patient is a 69-year-old female with a past medical history of arthritis, chronic back pain, hypertension, high cholesterol, neck stenosis, who presents to the ER with an abscess of the anterior chest wall. It has been present in the cyst form for approximately 8 months with a small hard, firm, waxy type ball in this area. It has drained before on several occas ions in the past as it was expressed on those occasions. However, on this particular occasion, it go t large tender, painful. She went to her primary medical doctor who recommended she get it lanced th e next week. However, it continued to progress and get larger despite antibiotics prescribed by her primary medical doctor. Ultimately, she came to the emergency room with the above-stated complaints. Past Medical History: Hypertension, chronic back pain, arthritis, hyperlipidemia, DVT on the right a nkle. Past Surgical History: Includes a right total knee. Allergies: NO KNOWN DRUG ALLERGIES. Home Medications: Include amlodipine, atorvastatin, Cymbalta, Toprol, Singulair, Crestor, Ventolin, Proventil, Tessalon Perles, Atrovent nebulizer, Levaquin, Deltasone. Social History: She denies smoking. Drinks alcohol recreationally. Denies any other recreational d rug use. Review of Systems: Ten-point review of systems other than HPI negative, except as above noted. Physical Examination: General: She is awake, alert, and oriented. Psychiatric: Appropriate, conversive. HEENT: She is normocephalic. Sclerae anicteric. Her mucous membranes moist. Oropharynx clear. Neck: Supple. No JVD. Chest: There is a raised abscess in the central portion consistent with an infected epidermal inclus ion cyst on the upper midportion of the sternum. There is redness, tenderness, and a significant flu ctuance to this area consistent with an abscess, possible infected sebaceous cyst/epidermal inclusion cyst. Extremities: No clubbing, cyanosis, edema. Skin: Warm and dry. Laboratory Data: Reveals white blood cell count of 8.7, hemoglobin 13.4, hematocrit of 39.5, platele t count is 264. Her PT 12.8, INR 1.14. Sodium 139, potassium 3.6, chloride 110, carbon dioxide is 2 6, BUN 7, creatinine 0.8, glucose was 127. She had imaging performed, which included a CT of the [place] [address], which was officially read as 1.7 cm abscess suspected to anterior upper chest to the right of mid line within the subcutaneous tissues. Assessment And Plan: This is a 69-year-old female who comes in with a central chest abscess. 1. IV fluid hydration. 2. Antibiotic coverage. 3. I have explained the risks, benefits, alternatives of incision, drainage, and debridement of a lik eren infected epidermal inclusion cyst of the central chest, including but not limited to bleeding, in fection, damage to surrounding tissues, need for further operating procedures. The patient displayed understanding of the above stated plan and agreed to proceed as indicated. I have also explained th e risks including blood clots, heart attack, strokes, other unforeseen complications in the periopera tive period. The patient and her displayed understanding of the above stated plan and agreed to proceed as indicated. HAILEE/ADEN Voice ID: [id number] Report ID: [id number]
[2025-06-04 12:35] VITALS: TEMP 97.9
--- NOTE | 2025-06-04 14:53 | P.DS ---
Admission Date: 06/03/25 Discharge Date: 06/04/25 Disposition: ROUTINE DISCHARGE Discharge Condition: GOOD Reason for Admission: anterior chest wall abscess Brief History of Present Illness: Diagnosis Anterior chest wall abscess Right total knee arthroplasty Hx DVT right LE Arthritis chronic back pain HTN High Cholesterol Hypertension neck stenosis HPI 06/03/2025 Eileen Palacio is a 69 year old female with pmhx Arthritis, chronic back pain, HTN, High Cholesterol, Hypertension, neck stenosis, who presents to the ED with an abscess to anterior chest wall. She reports this abscess starting as a white head that her popped and drained on . She was seen by her PCP who scheduled a procedure to jose elias the abscess later this week and gave her clindamycin. Eileen reports this abscess has grown and become more tender and now she feels "bad all over as if she has a blood infection." Her at the bedside reports the abscess is very sore and tender that the sheets on the bed are causing pain. She denies fever, chills, SOB, and CP. Of note: Eileen had a Right total knee in March which a DVT in her ankle was found in April, she was on Eliquis with last dose ten days ago. CTA chest reports "No evidence of a pulmonary embolism. Resolution of the right lower lobe pneumonia. 1.7 cm abscess suspected anterior upper chest to the right of midline within the subcutaneous tissues." Chest x-ray reports "No acute abnormality is displayed." Bilateral lower extremity venous ultrasound report "No evidence of deep venous thrombosis involving either lower extremity" Eileen will be admitted to hospitalist service for further treatment of anterior chest wall abscess. Dr. Lopez consulted. Hospital Course: [place] was admitted and treated for an anterior chest wall abscess, Dr. Lopez was consulted and surgical I&D was performed 06/04/2025. Wound cultures sent for microscopy, Dr. Lopez will follow and is requested outpatient follow-up with Augmentin and pain control. Physical Exam General: Alert and Oriented x3, NAD HEENT: Atraumatic, Normocephalic, PERRLA Respiratory: Clear BBS, Normal air movement, on RA Cardiovascular: Normal pulses, RRR, S1S2 present Capillary refill: <2 Seconds Gastrointestinal: Normal bowel sounds, Soft on palpation Musculoskeletal: No clubbing Integumentary: SDressing CDI to anterior chest wall) Neurological: Normal speech, Normal tone Vital Signs/Physical Exam: Temp Pulse Resp BP Pulse Ox 98.0 F 100 H 15 128/60 89 L 06/04/25 11:00 06/04/25 11:00 06/04/25 11:00 06/04/25 11:00 06/04/25 08:00 Laboratory Data at Discharge: WBC 8.70 thou/uL (4.3-10.9) 06/04/25 05:13 Hgb 13.4 g/dL (12.0-15.0) D 06/04/25 05:13 Hct 39.5 % (36.0-45.0) 06/04/25 05:13 Plt Count 264 thou/uL (152-406) 06/04/25 05:13 PT 12.8 SECONDS (10-13.0) 06/03/25 11:20 INR 1.14 06/03/25 11:20 Sodium 139 mEq/L (136-145) 06/04/25 05:13 Potassium 3.6 mEq/L (3.5-5.1) 06/04/25 05:13 BUN 7 mg/dL (7-18) 06/04/25 05:13 Creatinine 0.81 mg/dL (0.55-1.02) 06/04/25 05:13 Glucose 127 mg/dL (74-106) H 06/04/25 05:13 Phosphorus 4.3 mg/dL (2.5-4.9) 06/04/25 05:13 Magnesium 1.7 mg/dL (1.6-2.4) 06/04/25 05:13 Total Bilirubin 0.7 mg/dL (0.2-1.0) 06/03/25 11:20 AST 17 U/L (15-37) 06/03/25 11:20 ALT 18 U/L (13-56) 06/03/25 11:20 Alkaline Phosphatase 116 U/L (45-117) 06/03/25 11:20 Lipase 21 U/L (13-75) 06/03/25 11:20 Home Medications: Amlodipine Besylate 10 mg PO DAILY 12/29/24 Metoprolol Succinate [Toprol Xl*] 50 mg PO DAILY 12/29/24 Rosuvastatin Calcium [Crestor] 40 mg PO BEDTIME 12/29/24 Aspirin 81 mg PO DAILY 06/03/25 Omeprazole 20 mg PO DAILY 06/03/25 Amox/Clavulanate [Augmentin 875-125 Tab] 875 mg PO BID 7 Days #14 tab 06/04/25 New Medications: Amox/Clavulanate [Augmentin 875-125 Tab] 875 mg PO BID 7 Days #14 tab Physician Discharge Instructions: 1. Please call and schedule a follow-up appointment with your PCP in 3-5 days - Please follow-up with your PCP for medication refills/adjustments 2. Please call and schedule a follow-up appointment with Dr. Lopez in one week 3. Continue regular diet 4. No activity restrictions 5. Return to the ED if symptoms worsen New medications Augmentin 875 mg twice daily x 7 days [place] as needed for pain x 15 doses Daily dressing changes: Remove all dressings then irrigate with sterile saline repack wound with half-inch plain packing damp with Vashe then dry gauze over top and tape. First dressing change 48 hours after surgery then daily thereafter Diet: Regular Activity: Ad misha Followup: Oscar Lopez MD [ACTIVE - CAN ADMIT] - NONE,NONE [Primary Care Provider] -
== END 2025-06-04 12:20 | disposition home or self-care (01) | DRG 572 ==
LOC: ER 10:38 → ERHOLD 12:26 → 4TH 12:51
PROVIDERS: ADMIT Hospitalist; ATTEND Hospitalist
PROC: 0JB60ZZ Excision of Chest Subcutaneous Tissue and Fascia, Open Approach (ICD-10-PCS; principal; 2025-06-04 09:30)
DX: L02.213 Cutaneous abscess of chest wall (principal); L03.313 Cellulitis of chest wall; G89.29 Other chronic pain; I10 Essential (primary) hypertension; E78.00 Pure hypercholesterolemia, unspecified; M19.90 Unspecified osteoarthritis, unspecified site; Z11.52 Encounter for screening for COVID-19; Z79.52 Long term (current) use of systemic steroids; Z96.651 Presence of right artificial knee joint; Z79.899 Other long term (current) drug therapy
CPT/HCPCS: 36415; 71045; 71275; 80048; 80076; 83690; 83735; 83880; 84100; 84484; 85025; 85610; 87070; 87075; 87205; 87428; 88304; 93005; 93970; 96374; 96375; 99284; J0692; J1100; J2250; J2405; J2543; J2704; J3010; J3370; J3475; J7030; J7040; J7120; Q9967